=== PATIENT | male | born 1930 | race Hispanic/Latino ===

== ENCOUNTER 2018-09-26 13:14 | Inpatient (IN) | payer MEDICARE ==
--- NOTE | 2018-09-26 13:39 | Emergency Department Report ---
ED Altered Mental Status HPI - General Chief Complaint: Altered Mental Status Stated Complaint: AMS/FALL STANDING POSITION Time Seen by Provider: 09/26/18 13:14 Source: EMS Mode of arrival: Stretcher Limitations: Altered Mental Status - History of Present Illness Initial Comments: Condition is a 88-year-old male that presents with altered mental status. Patient was sent here by his shelter for evaluation. Patient found to be confused by the shelter staff and falling. Patient was brought in by EMS. Report received from EMS. Patient is a note 3 at this time, however the patient is confused on situation. Patient denies pain. Patient denies chest pain shortness of breath. Patient denies loss of consciousness. Patient denies hitting his head. Patient talking confused at times. Per EMS the patient fell to the floor but did not hit his head or lose consciousness. EMS also states patient has been hallucinating and confused. EMS states the patient had a near- syncope or syncopal episode The shelter documentation patient has a history of sepsis, encephalopathy, urinary tract infections, dementia, psychotic symptoms, depression, hypertension and difficulties in ambulating. Also per shelter documentation, patient was found to have confused talking and rambling with the staff of the shelter, patient was also agitated and fighting with the shelter staff. MD Complaint: altered mental status, confusion -: Sudden Severity: severe Consistency of Symptoms: waxing and waning Associated Symptoms: difficulty walking. denies: chest pain, cough, diaphoresis, fever/chills, headaches, loss of appetite, malaise, nausea/vomiting, rash, seizure, shortness of breath, syncope, weakness, foul smelling urine, diarrhea, incontinence - Related Data Allergies Allergy/AdvReac Type Severity Reaction Status Date / Time No Known Allergies Allergy Unverified 09/26/18 13:32 ED Review of Systems ROS: Stated complaint: AMS/FALL STANDING POSITION Other details as noted in HPI Constitutional: denies: chills, fever Eyes: denies: eye pain, eye discharge, vision change ENT: denies: ear pain, throat pain Respiratory: denies: cough, shortness of breath, wheezing Cardiovascular: denies: chest pain, palpitations Endocrine: no symptoms reported Gastrointestinal: denies: abdominal pain, nausea, diarrhea Genitourinary: denies: urgency, dysuria Musculoskeletal: denies: back pain, joint swelling, arthralgia Skin: denies: rash, lesions Neurological: denies: headache, weakness, paresthesias Psychiatric: denies: anxiety, depression Hematological/Lymphatic: denies: easy bleeding, easy bruising ED Past Medical Hx - Past Medical History Previous Medical History?: Yes Hx Hypertension: Yes Hx Psychiatric Treatment: Yes (dep. ) Hx Dementia: Yes - Surgical History Past Surgical History?: No - Family History Family history: no significant - Social History Smoking Status: Unknown if ever smoked Substance Use Type: None ED Physical Exam - General Limitations: Altered Mental Status General appearance: alert, in no apparent distress - Head Head exam: Present: atraumatic, normocephalic - Eye Eye exam: Present: normal appearance - ENT ENT exam: Present: mucous membranes moist - Neck Neck exam: Present: normal inspection - Respiratory Respiratory exam: Present: normal lung sounds bilaterally. Absent: respiratory distress - Cardiovascular Cardiovascular Exam: Present: regular rate, normal rhythm. Absent: systolic murmur, diastolic murmur, rubs, gallop - GI/Abdominal GI/Abdominal exam: Present: soft, normal bowel sounds - Rectal Rectal exam: Present: deferred - Extremities Exam Extremities exam: Present: normal inspection - Back Exam Back exam: Present: normal inspection - Neurological Exam Neurological exam: Present: alert, altered, oriented X3 - Psychiatric Psychiatric exam: Present: normal affect, normal mood - Expanded Psychiatric Exam Expanded Focused psych exam: Present: flight of ideas, loose associations - Skin Skin exam: Present: warm, dry, intact, normal color. Absent: rash - Assessment Assessment Interval: Baseline - Level of Consciousness 1a. Level of Consciousness: alert/keenly responsive - LOC Questions 1b. LOC Questions: answers both correctly - LOC Command 1c. LOC Commands: performs tasks correctly - Best Gaze 2. Best Gaze: normal - Visual 3. Visual: no visual loss - Facial Palsy 4. Facial Palsy: normal symmetrical movement - Motor Arm 5a. Motor Arm Left: no drift 5b. Motor Arm Right: no drift - Motor Leg 6a. Motor Leg Left: no drift 6b. Motor Leg Right: no drift - Limb Ataxia 7. Limb Ataxia: absent - Sensory 8. Sensory: normal - Best Language 9. Best Language: no aphasia - Dysarthria 10. Dysarthria: normal - Extinction and Inattention 11. Extinction/Inattention: no abnormality - Scoring Total Score: 0 Stroke Severity: No Stroke Symptoms ED Course Vital Signs 09/26/18 09/26/18 14:10 14:14 Temperature 98.2 F Pulse Rate 103 H Respiratory 18 118 H Rate Blood Pressure 156/75 [Left] O2 Sat by Pulse 100 100 Oximetry - Reevaluation(s) Reevaluation #1: Past costal results with patient. Patient agrees with plan of care and admis castro. Patient will be admitted to the hospitalist service. 09/26/18 15:48 - Consultations Consultation #1: 09/26/18 15:48 Hospitalist consulted for admission. Hospitalist to admit patient. Hospitalist to assume care patient. - Lab Data Result diagrams: 09/26/18 14:35 09/26/18 14:35 Lab Results 09/26/18 09/26/18 09/26/18 Range/Units 14:07 14:07 14:35 WBC (4.5-11.0) K/mm3 RBC (3.65-5.03) M/mm3 Hgb (11.8-15.2) gm/dl Hct (35.5-45.6) % MCV (84-94) fl MCH (28-32) pg MCHC (32-34) % RDW (13.2-15.2) % Plt Count (140-440) K/mm3 Lymph % (Auto) (13.4-35.0) % [place] % (Auto) (0.0-7.3) % Eos % (Auto) (0.0-4.3) % Baso % (Auto) (0.0-1.8) % Lymph # (1.2-5.4) K/mm3 [place] # (0.0-0.8) K/mm3 Eos # (0.0-0.4) K/mm3 Baso # (0.0-0.1) K/mm3 Seg Neutrophils % (40.0-70.0) % Seg Neutrophils # (1.8-7.7) K/mm3 Sodium (137-145) mmol/L Potassium (3.6-5.0) mmol/L Chloride (98-107) mmol/L Carbon Dioxide (22-30) mmol/L Anion Gap mmol/L BUN (9-20) mg/dL Creatinine (0.8-1.5) mg/dL Estimated GFR ml/min BUN/Creatinine Ratio % Glucose (75-100) mg/dL Lactic Acid 1.50 (0.7-2.0) mmol/L Calcium (8.4-10.2) mg/dL Total Bilirubin (0.1-1.2) mg/dL AST (5-40) units/L ALT (7-56) units/L Alkaline Phosphatase (35-129) units/L Total Creatine Kinase (55-170) units/L Troponin T (0.00-0.029) ng/mL Total Protein (6.3-8.2) g/dL Albumin (3.9-5) g/dL Albumin/Globulin Ratio % Urine Color Yellow (Yellow) Urine Turbidity Clear (Clear) Urine pH 6.0 (5.0-7.0) Ur Specific [place] 1.016 (1.003-1.030) Urine Protein <15 mg/dl (Negative) mg/dL Urine Glucose (UA) Neg (Negative) mg/dL Urine Ketones Tr (Negative) mg/dL Urine Blood Neg (Negative) Urine Nitrite Neg (Negative) Urine Bilirubin Neg (Negative) Urine Urobilinogen < 2.0 (<2.0) mg/dL Ur Leukocyte Esterase Neg (Negative) Urine WBC (Auto) 1.0 (0.0-6.0) /HPF Urine RBC (Auto) 2.0 (0.0-6.0) /HPF Urine Bacteria (Auto) 1+ (Negative) /HPF Urine Mucus Few /HPF Urine Opiates Screen Presumptive negative Urine Methadone Screen Presumptive negative Ur Barbiturates Screen Presumptive negative Ur Phencyclidine Scrn Presumptive negative Ur Amphetamines Screen Presumptive negative U Benzodiazepines Scrn Presumptive negative Urine Cocaine Screen Presumptive negative U Marijuana (THC) Screen Presumptive negative Drugs of Abuse Note Disclamer 09/26/18 09/26/18 Range/Units 14:35 14:35 WBC 6.4 (4.5-11.0) K/mm3 RBC 2.74 L (3.65-5.03) M/mm3 Hgb 9.2 L (11.8-15.2) gm/dl Hct 25.9 L (35.5-45.6) % MCV 94 (84-94) fl MCH 34 H (28-32) pg MCHC 36 H (32-34) % RDW 14.3 (13.2-15.2) % Plt Count 304 (140-440) K/mm3 Lymph % (Auto) 21.3 (13.4-35.0) % [place] % (Auto) 9.0 H (0.0-7.3) % Eos % (Auto) 2.6 (0.0-4.3) % Baso % (Auto) 0.8 (0.0-1.8) % Lymph # 1.4 (1.2-5.4) K/mm3 [place] # 0.6 (0.0-0.8) K/mm3 Eos # 0.2 (0.0-0.4) K/mm3 Baso # 0.1 (0.0-0.1) K/mm3 Seg Neutrophils % 66.3 (40.0-70.0) % Seg Neutrophils # 4.2 (1.8-7.7) K/mm3 Sodium 137 (137-145) mmol/L Potassium 3.9 (3.6-5.0) mmol/L Chloride 100.0 (98-107) mmol/L Carbon Dioxide 25 (22-30) mmol/L Anion Gap 16 mmol/L BUN 24 H (9-20) mg/dL Creatinine 1.0 (0.8-1.5) mg/dL Estimated GFR > 60 ml/min BUN/Creatinine Ratio 24 % Glucose 84 (75-100) mg/dL Lactic Acid (0.7-2.0) mmol/L Calcium 9.0 (8.4-10.2) mg/dL Total Bilirubin 0.20 (0.1-1.2) mg/dL AST 28 (5-40) units/L ALT 35 (7-56) units/L Alkaline Phosphatase 71 (35-129) units/L Total Creatine Kinase 72 (55-170) units/L Troponin T 0.082 H (0.00-0.029) ng/mL Total Protein 5.7 L (6.3-8.2) g/dL Albumin 3.3 L (3.9-5) g/dL Albumin/Globulin Ratio 1.4 % Urine Color (Yellow) Urine Turbidity (Clear) Urine pH (5.0-7.0) Ur Specific [place] (1.003-1.030) Urine Protein (Negative) mg/dL Urine Glucose (UA) (Negative) mg/dL Urine Ketones (Negative) mg/dL Urine Blood (Negative) Urine Nitrite (Negative) Urine Bilirubin (Negative) Urine Urobilinogen (<2.0) mg/dL Ur Leukocyte Esterase (Negative) Urine WBC (Auto) (0.0-6.0) /HPF Urine RBC (Auto) (0.0-6.0) /HPF Urine Bacteria (Auto) (Negative) /HPF Urine Mucus /HPF Urine Opiates Screen Urine Methadone Screen Ur Barbiturates Screen Ur Phencyclidine Scrn Ur Amphetamines Screen U Benzodiazepines Scrn Urine Cocaine Screen U Marijuana (THC) Screen Drugs of Abuse Note - EKG Data -: EKG Interpreted by Me EKG shows normal: sinus rhythm, axis, intervals, QRS complexes, ST-T waves Rate: normal - Radiology Data Radiology results: report reviewed No acute findings on CT scan. No acute findings on chest x-ray - Medical Decision Making Patient is an 88-year-old male that presents to the emergency room with complaints of confusion, hallucinations and fall and near syncope. Patient's labs unremarkable except for anemia, elevated troponin. Head CT negative for acute findings but has chronic findings. Patient's chest x-ray negative for acute findings. - Differential Diagnosis syncope. Hallucinations. Altered mental status. Critical Care Time: Yes Critical care attestation.: If time is entered above; I have spent that time in minutes in the direct care of this critically ill patient, excluding procedure time. Critical Care Time: 45 minutes ED Disposition Clinical Impression: Falls frequently, Elevated troponin, Confusion, Hallucination, Near syncope Altered mental state Qualifiers: Altered mental status type: unspecified Qualified Code(s): R41.82 - Altered mental status, unspecified Anemia Qualifiers: Anemia type: unspecified type Qualified Code(s): D64.9 - Anemia, unspecified Disposition: DC-09 OP ADMIT IP TO THIS HOSP Is pt being admited?: Yes Does the pt Need Aspirin: No Condition: Critical Instructions: Syncope (ED) Time of Disposition: 15:47
[2018-09-26 14:20] LABS: Bacteria,Urine 1+ /HPF (Negative); Bilirubin,Urine NEG (Negative); Blood,Urine NEG (Negative); Color,Urine Yellow (Yellow); Mucus,Urine FEW /HPF; Protein,Urine <15 mg/dL mg/dL (Negative); Urobilinogen,Urine < 2.0 mg/dL (<2.0)
[2018-09-26 14:28] LABS: Amphetamine Screen,Urine PRESUMPTIVE NEGATIVE; Benzodiazepines Screen,Urine PRESUMPTIVE NEGATIVE; Cannabinoid Screen,Urine PRESUMPTIVE NEGATIVE; Cocaine Screen,Urine PRESUMPTIVE NEGATIVE; Methadone Screen,Urine PRESUMPTIVE NEGATIVE; Opiate Screen,Urine PRESUMPTIVE NEGATIVE
--- NOTE | 2018-09-26 14:42 | XRay Report ---
AP CHEST: HISTORY: Altered mental status AP view of the chest demonstrates a normal mediastinal and cardiac contour with clear lungs and normal bony and soft tissue structures. IMPRESSION: No acute cardiopulmonary findings.
--- NOTE | 2018-09-26 14:47 | Cat Scan Report ---
CT HEAD WITHOUT CONTRAST: HISTORY: Altered mental status. TECHNIQUE: Sequential 2.5mm CT images. COMPARISON: none. FINDINGS: Cerebral Parenchyma: Mild diffuse cortical volume loss is evident. Mild nonspecific chronic white matter changes are also identified which appear appropriate for this persons age. Cerebellum: There are multiple subcentimeter chronic focal infarcts in the bilateral cerebellar hemispheres. Approximately 4 focal infarcts are identified in the right cerebellum and 2 focal infarcts in the left cerebellum. Brainstem: Within normal limits. Ventricles: Normal. Sella: Normal. Extra-axial spaces: Normal. Basal Cisterns: Normal. Intracranial Hemorrhage: None. Midline Shift: None. Calvarium: Normal. Sinuses: Normal. Mastoid Air Cells: Normal. Visualized Orbits: Normal. IMPRESSION: Age appropriate volume loss and chronic white matter changes. 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 No acute intracranial process is identified.
[2018-09-26 15:28] LABS: Basophils # (Auto) 0.1 K/mm3 (0.0-0.1); Basophils % (Auto) 0.8 % (0.0-1.8); Eosinophils # (Auto) 0.2 K/mm3 (0.0-0.4); Eosinophils % (Auto) 2.6 % (0.0-4.3); Hematocrit 25.9 % (35.5-45.6); Hemoglobin 9.2 gm/dl (11.8-15.2); Lymphocytes # (Auto) 1.4 K/mm3 (1.2-5.4); Lymphocytes % (Auto) 21.3 % (13.4-35.0); Mean Corpuscular HGB Conc 36 % (32-34); Mean Corpuscular Volume 94 fl (84-94); Monocytes # (Auto) 0.6 K/mm3 (0.0-0.8); Platelet Count 304 K/mm3 (140-440); Red Blood Count 2.74 M/mm3 (3.65-5.03); Red Cell Distribution Width 14.3 % (13.2-15.2)
[2018-09-26 15:42] LABS: Alanine Aminotransferase 35 units/L (7-56); Albumin 3.3 g/dL (3.9-5); BUN/Creatinine Ratio 24; Blood Urea Nitrogen 24 mg/dL (9-20); Hemolysis Index 8
[2018-09-26 16:09] LABS: Creatine Kinase MB 3.2 ng/mL (0.0-4.0)
[2018-09-26 16:10] LABS: Chol/HDL Ratio 4.22 %; HDL Cholesterol 35 mg/dL (40-59); LDL Cholesterol,Direct 107 mg/dL (50-130)
[2018-09-26] MEDS ORDERED: TYLENOL PO PRN (17:01)
[2018-09-26] MEDS ORDERED: SODIUM CHLORIDE FLUSH SYRINGE 10 ML IV PRN (17:01)
[2018-09-26] MEDS ORDERED: ZOFRAN IV PRN (17:01)
[2018-09-26] MEDS ORDERED: DILAUDID IV PRN (17:04)
[2018-09-26] MEDS ORDERED: PERCOCET 5/325 PO PRN (17:04)
[2018-09-26] MEDS ORDERED: HEPARIN 10,000 UNITS/10 ML IV ONE (17:11)
[2018-09-26] MEDS ORDERED: NON-FORMULARY (Amlodipine Besylate [Norvasc] 2.5 MG) PO SCH (17:15)
--- NOTE | 2018-09-26 17:24 | History and Physical Report ---
History of Present Illness Date of examination: 09/26/18 Date of admission: 09/26/2018 Chief complaint: Syncope and frequent falls History of present illness: 88-year-old male with history of hypertension and dementia with agitation and recent onset delusions sent from the patient's is a intermediate for apparent syncope and frequent falls. As per the son who is at bedside patient woke up at 3 AM and gives him some instructions. Patient was following a nurse who was giving medications this morning and apparently syncopized. No complaints of any chest pain. Patient was apparently very confused and delirious at that point. During my examination patient was clear and coherent alert and oriented 3. No fever or chills. No shortness of breath. Patient was admitted to [facility] for severe debility to improve his strength and for rehabilitation. Patient is a history of hypertension dementia and psychotic symptoms. Patient also has dementia with agitation Past Medical History Previous Medical History?: Yes Hx Hypertension: Yes Hx Psychiatric Treatment: Yes (dep. ) Hx Dementia: Yes Surgical History Past Surgical History?: No Family History Family history: no significant Social History Smoking Status: Unknown if ever smoked Substance Use Type: None Review of Systems ROS: Stated complaint: AMS/FALL STANDING POSITION Other details as noted in HPI Constitutional: denies: chills, fever Eyes: denies: eye pain, eye discharge, vision change ENT: denies: ear pain, throat pain Respiratory: denies: cough, shortness of breath, wheezing Cardiovascular: denies: chest pain, palpitations Endocrine: no symptoms reported Gastrointestinal: denies: abdominal pain, nausea, diarrhea Genitourinary: denies: urgency, dysuria Musculoskeletal: denies: back pain, joint swelling, arthralgia Skin: denies: rash, lesions Neurological: denies: headache, weakness, paresthesias Psychiatric: denies: anxiety, depression Hematological/Lymphatic: denies: easy bleeding, easy bruising Medications and Allergies Allergies Allergy/AdvReac Type Severity Reaction Status Date / Time No Known Allergies Allergy Unverified 09/26/18 13:32 Home Medications Medication Instructions Recorded Confirmed Last Taken Type Amlodipine Besylate [Norvasc] 2.5 mg PO DAILY 09/26/18 09/26/18 Unknown History Divalproex ER [DepaKOTE ER] 250 mg PO QHS 09/26/18 09/26/18 Unknown History Losartan [Cozaar] 25 mg PO QDAY 09/26/18 09/26/18 Unknown History Melatonin 3 mg PO QHS 09/26/18 09/26/18 Unknown History Mirtazapine [Remeron] 15 mg PO QHS 09/26/18 09/26/18 Unknown History Valsartan 40 mg PO QDAY 09/26/18 09/26/18 Unknown History cefUROXime [Ceftin] 250 mg PO Q12H 09/26/18 09/26/18 Unknown History risperiDONE [Risperdal] 0.5 mg PO QHS 09/26/18 09/26/18 Unknown History Active Meds: Active Medications Acetaminophen (Tylenol) 650 mg PO Q4H PRN PRN Reason: Pain MILD(1-3)/Fever >100.5/PAULINO Divalproex Sodium (Depakote Er) 250 mg PO QHS [facility] Enoxaparin Sodium (Lovenox) 30 mg SUB-Q QDAY [facility] Heparin Sodium (Porcine) (Heparin 10,000 Units/10 Ml) 4,700 unit 60 unit/kg (4700 unit) IV ONCE ONE Stop: 09/26/18 17:12 Hydromorphone HCl (Dilaudid) 0.5 mg IV Q3H PRN PRN Reason: Pain , Severe (7-10) Sodium Chloride (Nacl 0.9% 1000 Ml) 1,000 mls @ 75 mls/hr IV DIRECT JORDYN Stop: 09/27/18 11:00 Heparin Sodium/Sodium Chloride (Heparin/ 0.45% Nacl-25,000 Unit/500 Ml) 25,000 unit in 500 mls @ 23.678 mls/hr IV TITR JORDYN; Protocol Mirtazapine (Remeron) 15 mg PO QHS [facility] Miscellaneous Medication (Amlodipine Besylate [Norvasc]) 2.5 mg PO DAILY [facility] Miscellaneous Medication (Melatonin [Melatonin]) 3 mg PO QHS [facility] Miscellaneous Medication (Risperidone [Risperdal]) 0.5 mg PO QHS [facility] Ondansetron HCl (Zofran) 4 mg IV Q8H PRN PRN Reason: Nausea And Vomiting Oxycodone/Acetaminophen (Percocet 5/325) 1 tab PO Q6H PRN PRN Reason: Pain, Moderate (4-6) Sodium Chloride (Sodium Chloride Flush Syringe 10 Ml) 10 ml IV BID JORDYN Sodium Chloride (Sodium Chloride Flush Syringe 10 Ml) 10 ml IV PRN PRN PRN Reason: LINE FLUSH Valsartan (Diovan) 80 mg PO QDAY JORDYN Exam - Physical Exam Narrative exam: Elderly male lying in bed and answering questions appropriately - Constitutional Vitals: Temp Pulse Resp BP Pulse Ox 98.2 F 103 H 118 H 156/75 100 09/26/18 14:14 09/26/18 14:14 09/26/18 14:14 09/26/18 14:14 09/26/18 14:14 General appearance: Present: no acute distress, well-nourished - EENT Eyes: Present: PERRL ENT: hearing intact, clear oral mucosa - Neck Neck: Present: supple, normal ROM - Respiratory Respiratory effort: normal Respiratory: bilateral: CTA - Cardiovascular Heart rate: 100 Rhythm: regular Heart Sounds: Present: S1 & S2. Absent: rub, click - Extremities Extremities: no ischemia, pulses intact, pulses symmetrical, No edema Peripheral Pulses: within normal limits - Abdominal General gastrointestinal: Present: soft, non-tender, non-distended, normal bowel sounds Male genitourinary: Present: normal - Rectal Rectal Exam: deferred - Integumentary Integumentary: Present: clear, warm, dry - Musculoskeletal Musculoskeletal: gait normal, strength equal bilaterally - Psychiatric Psychiatric: appropriate mood/affect, intact judgment & insight - Neurologic Neurologic: CNII-XII intact, moves all extremities - Allied Health Allied health notes reviewed: nursing, case management Results - Labs CBC & Chem 7: 09/26/18 17:28 09/26/18 14:35 Labs: Laboratory Last Values WBC 6.4 K/mm3 (4.5-11.0) 09/26/18 14:35 RBC 2.74 M/mm3 (3.65-5.03) L 09/26/18 14:35 Hgb 9.2 gm/dl (11.8-15.2) L 09/26/18 14:35 Hct 25.9 % (35.5-45.6) L 09/26/18 14:35 MCV 94 fl (84-94) 09/26/18 14:35 MCH 34 pg (28-32) H 09/26/18 14:35 MCHC 36 % (32-34) H 09/26/18 14:35 RDW 14.3 % (13.2-15.2) 09/26/18 14:35 Plt Count 304 K/mm3 (140-440) 09/26/18 14:35 Lymph % (Auto) 21.3 % (13.4-35.0) 09/26/18 14:35 [place] % (Auto) 9.0 % (0.0-7.3) H 09/26/18 14:35 Eos % (Auto) 2.6 % (0.0-4.3) 09/26/18 14:35 Baso % (Auto) 0.8 % (0.0-1.8) 09/26/18 14:35 Lymph # 1.4 K/mm3 (1.2-5.4) 09/26/18 14:35 [place] # 0.6 K/mm3 (0.0-0.8) 09/26/18 14:35 Eos # 0.2 K/mm3 (0.0-0.4) 09/26/18 14:35 Baso # 0.1 K/mm3 (0.0-0.1) 09/26/18 14:35 Seg Neutrophils % 66.3 % (40.0-70.0) 09/26/18 14:35 Seg Neutrophils # 4.2 K/mm3 (1.8-7.7) 09/26/18 14:35 Sodium 137 mmol/L (137-145) 09/26/18 14:35 Potassium 3.9 mmol/L (3.6-5.0) 09/26/18 14:35 Chloride 100.0 mmol/L (98-107) 09/26/18 14:35 Carbon Dioxide 25 mmol/L (22-30) 09/26/18 14:35 Anion Gap 16 mmol/L 09/26/18 14:35 BUN 24 mg/dL (9-20) H 09/26/18 14:35 Creatinine 1.0 mg/dL (0.8-1.5) 09/26/18 14:35 Estimated GFR > 60 ml/min 09/26/18 14:35 BUN/Creatinine Ratio 24 % 09/26/18 14:35 Glucose 84 mg/dL (75-100) 09/26/18 14:35 Lactic Acid 1.50 mmol/L (0.7-2.0) 09/26/18 14:35 Calcium 9.0 mg/dL (8.4-10.2) 09/26/18 14:35 Total Bilirubin 0.20 mg/dL (0.1-1.2) 09/26/18 14:35 AST 28 units/L (5-40) 09/26/18 14:35 ALT 35 units/L (7-56) 09/26/18 14:35 Alkaline Phosphatase 71 units/L (35-129) 09/26/18 14:35 Total Creatine Kinase 70 units/L (55-170) 09/26/18 14:35 CK-MB (CK-2) 3.2 ng/mL (0.0-4.0) 09/26/18 14:35 CK-MB (CK-2) Rel Index 4.5 (0-4) H 09/26/18 14:35 Troponin T 0.082 ng/mL (0.00-0.029) H 09/26/18 14:35 Total Protein 5.7 g/dL (6.3-8.2) L 09/26/18 14:35 Albumin 3.3 g/dL (3.9-5) L 09/26/18 14:35 Albumin/Globulin Ratio 1.4 % 09/26/18 14:35 Triglycerides 112 mg/dL (2-149) 09/26/18 14:35 Cholesterol 148 mg/dL (50-199) 09/26/18 14:35 LDL Cholesterol Direct 107 mg/dL (50-130) 09/26/18 14:35 HDL Cholesterol 35 mg/dL (40-59) L 09/26/18 14:35 Cholesterol/HDL Ratio 4.22 % 09/26/18 14:35 Urine Color Yellow (Yellow) 09/26/18 14:07 Urine Turbidity Clear (Clear) 09/26/18 14:07 Urine pH 6.0 (5.0-7.0) 09/26/18 14:07 Ur Specific [place] 1.016 (1.003-1.030) 09/26/18 14:07 Urine Protein <15 mg/dl mg/dL (Negative) 09/26/18 14:07 Urine Glucose (UA) Neg mg/dL (Negative) 09/26/18 14:07 Urine Ketones Tr mg/dL (Negative) 09/26/18 14:07 Urine Blood Neg (Negative) 09/26/18 14:07 Urine Nitrite Neg (Negative) 09/26/18 14:07 Urine Bilirubin Neg (Negative) 09/26/18 14:07 Urine Urobilinogen < 2.0 mg/dL (<2.0) 09/26/18 14:07 Ur Leukocyte Esterase Neg (Negative) 09/26/18 14:07 Urine WBC (Auto) 1.0 /HPF (0.0-6.0) 09/26/18 14:07 Urine RBC (Auto) 2.0 /HPF (0.0-6.0) 09/26/18 14:07 Urine Bacteria (Auto) 1+ /HPF (Negative) 09/26/18 14:07 Urine Mucus Few /HPF 09/26/18 14:07 Salicylates < 0.3 mg/dL (2.8-20.0) L 09/26/18 14:35 Urine Opiates Screen Presumptive negative 09/26/18 14:07 Urine Methadone Screen Presumptive negative 09/26/18 14:07 Acetaminophen < 5.0 ug/mL (10.0-30.0) L 09/26/18 14:35 Ur Barbiturates Screen Presumptive negative 09/26/18 14:07 Ur Phencyclidine Scrn Presumptive negative 09/26/18 14:07 Ur Amphetamines Screen Presumptive negative 09/26/18 14:07 U Benzodiazepines Scrn Presumptive negative 09/26/18 14:07 Urine Cocaine Screen Presumptive negative 09/26/18 14:07 U Marijuana (THC) Screen Presumptive negative 09/26/18 14:07 Drugs of Abuse Note Disclamer 09/26/18 14:07 - Imaging and Cardiology EKG: report reviewed Imaging and Cardiology: Chest x-ray No acute findings CT head Age appropriate volume loss and chronic white matter changes. 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 No acute intracranial processes identified Assessment and Plan Advance Directives: Yes (Full code) VTE prophylaxis?: Chemical Plan of care discussed with patient/family: Yes - Patient Problems (1) Non-STEMI (non-ST elevated myocardial infarction) Current Visit: Yes Status: Acute Plan to address problem: Troponin elevated CK-MB slightly elevated\ No chest pain We will treat as non-STEMI Cardiology consultation requested Addendum: Patient's son and son-in-law requested to have a discussion with me. Son-in-law is a physician promotional advertising assistant Son-in-law does not want Lexiscan and heparin drip which were discontinued They mainly want the patient to be admitted to the [facility] psych unit. I could not medically clear to geropsychiatric unit in the emergency room because of elevated troponin and CK-MB. They feel that the patient needs psychiatric treatment than medical treatment with which I agree partially. Son agreed for echocardiogram Cardiology consult was requested for their opinion (2) Syncope Current Visit: Yes Status: Chronic Qualifiers: Encounter type: initial encounter Plan to address problem: Syncope workup Patient to get Lexiscan echocardiogram and carotid duplex scan As per son there was no syncope and they do not want Lexiscan which was discontinued (3) Elevated troponin Current Visit: Yes Status: Acute Plan to address problem: As mentioned in non-STEMI workup (4) Hypertension Current Visit: Yes Status: Chronic Qualifiers: Hypertension type: essential hypertension Qualified Code(s): I10 - Essential (primary) hypertension Plan to address problem: Continue valsartan and amlodipine (5) Dementia Current Visit: Yes Status: Chronic Qualifiers: Dementia type: vascular dementia Dementia behavioral disturbance: with behavioral disturbance Qualified Code(s): F01.51 - Vascular dementia with behavioral disturbance Plan to address problem: Patient also has agitation and delusions Patient on Depakote for behavior disturbances and also Risperdal . Patient needs mental health consultation Patient also needs [facility] psych admission once the patient is stable and being discharged (6) Falls frequently Current Visit: Yes Status: Acute Plan to address problem: Physical therapy initiated (7) Anemia Current Visit: Yes Status: Chronic Qualifiers: Anemia type: unspecified type Qualified Code(s): D64.9 - Anemia, unspecified Plan to address problem: Anemia workup ordered (8) DVT prophylaxis Current Visit: Yes Status: Acute Plan to address problem: On Lovenox and GI prophylaxis
[2018-09-26] MEDS ORDERED: NACL 0.9% 1000 ML 1,000 ML IV SCH (18:00)
[2018-09-26] MEDS ORDERED: HEPARIN/ 0.45% NACL-25,000 UNIT/500 ML 25,000 UNIT/500 ML BAG IV SCH (18:00)
[2018-09-26 18:03] LABS: Hematocrit 26.9 % (35.5-45.6); Hemoglobin 9.4 gm/dl (11.8-15.2)
[2018-09-26] MEDS: NORVASC PO SCH (18:12)
[2018-09-26 18:14] LABS: INR 0.99 (0.87-1.13)
[2018-09-26 18:15] LABS: Partial Thromboplastin Time 29.5 Sec. (24.2-36.6)
[2018-09-26] MEDS: DIOVAN PO SCH (18:19)
[2018-09-26] MEDS ORDERED: LOVENOX SUB-Q SCH (20:00)
[2018-09-26] MEDS ORDERED: MELATONIN 3 MG PO SCH (22:00)
[2018-09-26] MEDS ORDERED: NON-FORMULARY (Risperidone [Risperdal] 0.5 MG) PO SCH (22:00)
[2018-09-26] MEDS: SODIUM CHLORIDE FLUSH SYRINGE 10 ML IV SCH (22:42)
[2018-09-26] MEDS: LOVENOX SUB-Q SCH (22:42)
[2018-09-26] MEDS: RisperDAL PO SCH (22:42)
[2018-09-26] MEDS: REMERON PO SCH (22:42)
[2018-09-27 07:23] LABS: Alanine Aminotransferase 30 units/L (7-56); Albumin 3.2 g/dL (3.9-5); BUN/Creatinine Ratio 20; Blood Urea Nitrogen 20 mg/dL (9-20); Calcium 8.8 mg/dL (8.4-10.2); Hemolysis Index 5
--- NOTE | 2018-09-27 08:38 | Consultation ---
History of Present Illness - Reason for Consult Consult date: 09/27/18 dementia with agitation and delusions Requesting physician: SUZY BLANCO - History of Present Illness The patient is an 88yo retired male with history of Dementia, CKD, HTN, HLD, Hyponatremia, Anxiety and Insomnia. He was transfer from [facility] facility to the [facility] with c/o being confused and agitated; he was reportedly entering other patients' rooms, disruptive and difficult to redirect. Psychiatry consult requested for management of dementia with agitation and delusions. Patient seen this morning. Son-in-law is at bedside. Patient is alert and fully oriented this morning. He is calm and pleasant but endorses being confused. He also endorses auditory hallucinations and paranoia. He reports being told that he has memory problems by his doctor. He completely denies SI/HI. His Son-in-law reports that patient has mild memory difficulties at baseline but he is able to function independently. He lives alone, able to drive and do grocery shopping. Since last June, his memory progressively declined to where he is very confused, disorganized and delusional. He has difficulty sleeping at night. No suicidal or homicidal statements or gestures. Per son-in-law, patient was admitted at [facility] one week ago and was started on antibiotics for UTI -last dose was yesterday. He was transferred to the [facility] facility from where he was transferred here yesterday due to his aggressive behaviors. Past History Past Medical History: GERD, hypertension, other (CKD, UTI) Social history: , Lives alone Family history: no significant family history Medications and Allergies Allergies Allergy/AdvReac Type Severity Reaction Status Date / Time No Known Allergies Allergy Unverified 09/26/18 13:32 Home Medications Medication Instructions Recorded Confirmed Last Taken Type Amlodipine Besylate [Norvasc] 2.5 mg PO DAILY 09/26/18 09/26/18 Unknown History Divalproex ER [DepaKOTE ER] 250 mg PO QHS 09/26/18 09/26/18 Unknown History Losartan [Cozaar] 25 mg PO QDAY 09/26/18 09/26/18 Unknown History Melatonin 3 mg PO QHS 09/26/18 09/26/18 Unknown History Mirtazapine [Remeron] 15 mg PO QHS 09/26/18 09/26/18 Unknown History Valsartan 40 mg PO QDAY 09/26/18 09/26/18 Unknown History cefUROXime [Ceftin] 250 mg PO Q12H 09/26/18 09/26/18 Unknown History risperiDONE [Risperdal] 0.5 mg PO QHS 09/26/18 09/26/18 Unknown History Active Meds: Active Medications Acetaminophen (Tylenol) 650 mg PO Q4H PRN PRN Reason: Pain MILD(1-3)/Fever >100.5/PAULINO Amlodipine Besylate (Norvasc) 2.5 mg PO QDAY [facility] Last Admin: 09/26/18 18:12 Dose: 2.5 mg Documented by: Divalproex Sodium (Depakote Er) 250 mg PO QHS [facility] Last Admin: 09/26/18 22:41 Dose: 250 mg Documented by: Enoxaparin Sodium (Lovenox) 80 mg SUB-Q Q12HR [facility] Last Admin: 09/26/18 22:42 Dose: 80 mg Documented by: Hydromorphone HCl (Dilaudid) 0.5 mg IV Q3H PRN PRN Reason: Pain , Severe (7-10) Sodium Chloride (Nacl 0.9% 1000 Ml) 1,000 mls @ 75 mls/hr IV DIRECT [facility] Stop: 09/27/18 11:00 Mirtazapine (Remeron) 15 mg PO QHS [facility] Last Admin: 09/26/18 22:42 Dose: 15 mg Documented by: Miscellaneous Medication (Melatonin [Melatonin]) 3 mg PO QHS [facility] Ondansetron HCl (Zofran) 4 mg IV Q8H PRN PRN Reason: Nausea And Vomiting Oxycodone/Acetaminophen (Percocet 5/325) 1 tab PO Q6H PRN PRN Reason: Pain, Moderate (4-6) Risperidone (Risperdal) 0.5 mg PO QHS [facility] Last Admin: 09/26/18 22:42 Dose: 0.5 mg Documented by: Sodium Chloride (Sodium Chloride Flush Syringe 10 Ml) 10 ml IV BID [facility] Last Admin: 09/26/18 22:42 Dose: 10 ml Documented by: Sodium Chloride (Sodium Chloride Flush Syringe 10 Ml) 10 ml IV PRN PRN PRN Reason: LINE FLUSH Valsartan (Diovan) 80 mg PO QDAY [facility] Last Admin: 09/26/18 18:19 Dose: 80 mg Documented by: Review of Systems All systems: negative Constitutional: fatigue Psychiatric: memory loss, insomnia, hallucinations, paranoia Exam - Constitutional Vitals: Temp Pulse Resp BP Pulse Ox 98.3 F 102 H 18 187/89 96 09/27/18 00:36 09/27/18 06:06 09/27/18 00:36 09/27/18 00:36 09/27/18 00:36 General appearance: Present: no acute distress - Respiratory Respiratory effort: normal - Extremities Extremities: no ischemia, No edema - Integumentary Integumentary: Present: clear, warm, dry Results - Labs CBC & Chem 7: 09/26/18 17:28 09/27/18 04:22 Labs: Abnormal lab results 09/26/18 09/26/18 09/26/18 Range/Units 14:35 14:35 14:35 RBC 2.74 L (3.65-5.03) M/mm3 Hgb 9.2 L (11.8-15.2) gm/dl Hct 25.9 L (35.5-45.6) % MCH 34 H (28-32) pg MCHC 36 H (32-34) % [place] % (Auto) 9.0 H (0.0-7.3) % BUN 24 H (9-20) mg/dL CK-MB (CK-2) Rel Index (0-4) Troponin T 0.082 H (0.00-0.029) ng/mL Total Protein 5.7 L (6.3-8.2) g/dL Albumin 3.3 L (3.9-5) g/dL HDL Cholesterol 35 L (40-59) mg/dL Salicylates < 0.3 L (2.8-20.0) mg/dL Acetaminophen (10.0-30.0) ug/mL 09/26/18 09/26/18 09/26/18 Range/Units 14:35 14:35 17:28 RBC (3.65-5.03) M/mm3 Hgb (11.8-15.2) gm/dl Hct (35.5-45.6) % MCH (28-32) pg MCHC (32-34) % [place] % (Auto) (0.0-7.3) % BUN (9-20) mg/dL CK-MB (CK-2) Rel Index 4.5 H (0-4) Troponin T 0.097 H (0.00-0.029) ng/mL Total Protein (6.3-8.2) g/dL Albumin (3.9-5) g/dL HDL Cholesterol (40-59) mg/dL Salicylates (2.8-20.0) mg/dL Acetaminophen < 5.0 L (10.0-30.0) ug/mL 09/26/18 09/26/18 09/27/18 Range/Units 17:28 23:22 04:22 RBC (3.65-5.03) M/mm3 Hgb 9.4 L (11.8-15.2) gm/dl Hct 26.9 L (35.5-45.6) % MCH (28-32) pg MCHC (32-34) % [place] % (Auto) (0.0-7.3) % BUN (9-20) mg/dL CK-MB (CK-2) Rel Index (0-4) Troponin T 0.098 H (0.00-0.029) ng/mL Total Protein 5.4 L (6.3-8.2) g/dL Albumin 3.2 L (3.9-5) g/dL HDL Cholesterol (40-59) mg/dL Salicylates (2.8-20.0) mg/dL Acetaminophen (10.0-30.0) ug/mL 09/27/18 Range/Units 04:22 RBC (3.65-5.03) M/mm3 Hgb (11.8-15.2) gm/dl Hct (35.5-45.6) % MCH (28-32) pg MCHC (32-34) % [place] % (Auto) (0.0-7.3) % BUN (9-20) mg/dL CK-MB (CK-2) Rel Index (0-4) Troponin T 0.090 H (0.00-0.029) ng/mL Total Protein (6.3-8.2) g/dL Albumin (3.9-5) g/dL HDL Cholesterol (40-59) mg/dL Salicylates (2.8-20.0) mg/dL Acetaminophen (10.0-30.0) ug/mL Assessment and Plan Major Neurocognitive Disorder with Behavioral Problems Acute Delirium due to multiple etiologies (dementia, UTI, electrolyte disturbance RECOMMENDATIONS: MEDICATIONS: Will increase Risperdal to 0.5mg bid for delirium Increase Melatonin to 6mg qhs to regulate sleep/wake cycle Continue Depakote at current dose Risks, benefits and alternatives of medications discussed with the patient, questions answered and consent obtained from patient. PSYCHOTHERAPY: Supportive psychotherapy provided SUBSTANCE ABUSE: N/A MEDICAL: Per primary team. Consider repeating UA DELIRIUM PRECAUTIONS: Please re-orient patient frequently, keep lights on during the day, and minimize benzodiazepines and opiates as these medications could worsen patient's confusion. ROPING TENDER: Defer to primary team DISPOSITION: Acute inpatient psychiatric hospitalization is indicated. Transfer when medically stable LEGAL STATUS: Voluntary FOLLOW-UP: Will continue to follow I have reviewed this treatment plan, including potential risks and benefits of medications, with the patient and/or family members and relevant hospital prov iders. Please contact with any questions and/or concerns. - Patient Problems (1) Altered mental state Current Visit: Yes Status: Acute Qualifiers: Altered mental status type: unspecified Qualified Code(s): R41.82 - Altered mental status, unspecified (2) Confusion Current Visit: Yes Status: Acute (3) Falls frequently Current Visit: Yes Status: Acute (4) Near syncope Current Visit: Yes Status: Acute (5) Dementia Current Visit: Yes Status: Chronic Qualifiers: Dementia type: vascular dementia Dementia behavioral disturbance: with behavioral disturbance Qualified Code(s): F01.51 - Vascular dementia with behavioral disturbance (6) Hypertension Current Visit: Yes Status: Chronic Qualifiers: Hypertension type: essential hypertension Qualified Code(s): I10 - Essential (primary) hypertension
[2018-09-27] MEDS ORDERED: LOVENOX SUB-Q SCH ×2 (10:00)
[2018-09-27] MEDS: DIOVAN PO SCH (11:05)
[2018-09-27] MEDS: NORVASC PO SCH (11:06)
[2018-09-27] MEDS: LOVENOX SUB-Q SCH ×2 (11:07→22:20)
[2018-09-27] MEDS: SODIUM CHLORIDE FLUSH SYRINGE 10 ML IV SCH ×2 (11:07→22:20)
--- NOTE | 2018-09-27 11:42 | Consultation ---
History of Present Illness Consult date: 09/27/18 Consult reason: elevated troponin History of present illness: Patient is an 88 year old male with a history of Dementia who was brought in with altered mental status and awaits inpatient psychiatric hospitalization. A cardiac consultation was requested for mild elevation of troponin. Patient denies chest pain shortness of breath. Head CT scan reports no acute intracranial process. 12 lead ECG is benign, a normal sinus rhythm. His latest echocardiogram, done 08/2018, reports a normal left ventricular systolic function, ejection fraction 50-55%. Past History Social history: , Lives alone Family history: no significant family history Medications and Allergies Allergies Allergy/AdvReac Type Severity Reaction Status Date / Time No Known Allergies Allergy Unverified 09/26/18 13:32 Home Medications Medication Instructions Recorded Confirmed Last Taken Type Amlodipine Besylate [Norvasc] 2.5 mg PO DAILY 09/26/18 09/26/18 Unknown History Divalproex ER [DepaKOTE ER] 250 mg PO QHS 09/26/18 09/26/18 Unknown History Losartan [Cozaar] 25 mg PO QDAY 09/26/18 09/26/18 Unknown History Melatonin 3 mg PO QHS 09/26/18 09/26/18 Unknown History Mirtazapine [Remeron] 15 mg PO QHS 09/26/18 09/26/18 Unknown History Valsartan 40 mg PO QDAY 09/26/18 09/26/18 Unknown History cefUROXime [Ceftin] 250 mg PO Q12H 09/26/18 09/26/18 Unknown History risperiDONE [Risperdal] 0.5 mg PO QHS 09/26/18 09/26/18 Unknown History Active Meds: Active Medications Acetaminophen (Tylenol) 650 mg PO Q4H PRN PRN Reason: Pain MILD(1-3)/Fever >100.5/PAULINO Amlodipine Besylate (Norvasc) 2.5 mg PO QDAY [facility] Last Admin: 09/27/18 11:06 Dose: 2.5 mg Documented by: Divalproex Sodium (Depakote Er) 250 mg PO QHS [facility] Last Admin: 09/26/18 22:41 Dose: 250 mg Documented by: Enoxaparin Sodium (Lovenox) 80 mg SUB-Q Q12HR [facility] Last Admin: 09/27/18 11:07 Dose: 80 mg Documented by: Hydromorphone HCl (Dilaudid) 0.5 mg IV Q3H PRN PRN Reason: Pain , Severe (7-10) Mirtazapine (Remeron) 15 mg PO QHS [facility] Last Admin: 09/26/18 22:42 Dose: 15 mg Documented by: Miscellaneous Medication (Melatonin [Melatonin]) 3 mg PO QHS [facility] Ondansetron HCl (Zofran) 4 mg IV Q8H PRN PRN Reason: Nausea And Vomiting Oxycodone/Acetaminophen (Percocet 5/325) 1 tab PO Q6H PRN PRN Reason: Pain, Moderate (4-6) Risperidone (Risperdal) 0.5 mg PO QHS [facility] Last Admin: 09/26/18 22:42 Dose: 0.5 mg Documented by: Sodium Chloride (Sodium Chloride Flush Syringe 10 Ml) 10 ml IV BID [facility] Last Admin: 09/27/18 11:07 Dose: 10 ml Documented by: Sodium Chloride (Sodium Chloride Flush Syringe 10 Ml) 10 ml IV PRN PRN PRN Reason: LINE FLUSH Valsartan (Diovan) 80 mg PO QDAY [facility] Last Admin: 09/27/18 11:05 Dose: 80 mg Documented by: Physical Examination Vital Signs Resp Pulse Ox 18 100 09/26/18 14:10 09/26/18 14:10 General appearance: no acute distress HEENT: Positive: PERRL Neck: Positive: trachea midline Cardiac: Positive: Reg Rate and Rhythm Lungs: Positive: Decreased Breath Sounds Neuro: Positive: Weakness Results 09/26/18 17:28 09/27/18 04:22 Cardiac Enzymes 09/26/18 09/26/18 09/27/18 Range/Units 14:35 14:35 04:22 AST 28 22 (5-40) units/L CK-MB (CK-2) 3.2 (0.0-4.0) ng/mL Coagulation 09/26/18 Range/Units 17:28 PT 13.7 (12.2-14.9) Sec. INR 0.99 (0.87-1.13) APTT 29.5 (24.2-36.6) Sec. Lipids 09/26/18 Range/Units 14:35 Triglycerides 112 (2-149) mg/dL Cholesterol 148 (50-199) mg/dL HDL Cholesterol 35 L (40-59) mg/dL Cholesterol/HDL Ratio 4.22 % CBC 09/26/18 09/26/18 Range/Units 14:35 17:28 WBC 6.4 (4.5-11.0) K/mm3 RBC 2.74 L (3.65-5.03) M/mm3 Hgb 9.2 L 9.4 L (11.8-15.2) gm/dl Hct 25.9 L 26.9 L (35.5-45.6) % Plt Count 304 310 (140-440) K/mm3 Lymph # 1.4 (1.2-5.4) K/mm3 [place] # 0.6 (0.0-0.8) K/mm3 Eos # 0.2 (0.0-0.4) K/mm3 Baso # 0.1 (0.0-0.1) K/mm3 Comprehensive Metabolic Panel 09/26/18 09/27/18 Range/Units 14:35 04:22 Sodium 137 140 (137-145) mmol/L Potassium 3.9 4.5 (3.6-5.0) mmol/L Chloride 100.0 105.7 (98-107) mmol/L Carbon Dioxide 25 24 (22-30) mmol/L BUN 24 H 20 (9-20) mg/dL Creatinine 1.0 1.0 (0.8-1.5) mg/dL Glucose 84 83 (75-100) mg/dL Calcium 9.0 8.8 (8.4-10.2) mg/dL AST 28 22 (5-40) units/L ALT 35 30 (7-56) units/L Alkaline Phosphatase 71 63 (35-129) units/L Total Protein 5.7 L 5.4 L (6.3-8.2) g/dL Albumin 3.3 L 3.2 L (3.9-5) g/dL Assessment and Plan Altered mental status Dementia Anemia Hypertension Mild elevated troponin, nonspecific pt denies chest pain ECG is benign Normal LVEF by echocardiogram 08/2018. Conservative cardiac management.
--- NOTE | 2018-09-27 12:08 | Discharge Summary ---
Providers - Providers Date of Admission: 09/26/18 17:01 Attending physician: JASMEET HUERTA MD 09/26/18 17:08 Consult to Physician [CONS] Routine Comment: LAUREEN AWARE OF CONSULTS AT 1100 Consulting Provider: THEODORE SARAH Physician Instructions: Reason For Exam: elevated troponin 09/26/18 17:09 Consult to Mental Health [CONS] Routine Reason For Exam: delusions Place consult to:: yes Notified:: CED Phone number called:: [phone] Was contact made?: Yes If yes, spoke with:: NATALEE Time called:: 08:00 09/26/18 18:18 Consult to Case Management [CONS] Routine Services Needed at Discharge: Physical Therapy Notified:: ed case manager Additional Physician Instructions: Hanny psych placement 09/26/18 18:36 Consult to Physician [CONS] Routine Comment: ALREADY SEEN BY PSYCH PER NURSE Consulting Provider: SHAHEEN GARCES Physician Instructions: Reason For Exam: dementia with agitation and delusions Physical Therapy Evaluation and Treat [CONS] Routine Comment: Reason For Exam: debility Primary care physician: MERY GARCIA Hospitalization Condition: Stable Disposition: [id number] PSY HOSP/PSY UNIT Time spent for discharge: 32 minutes - Discharge Diagnoses (1) Altered mental state Status: Acute Qualifiers: Altered mental status type: unspecified Qualified Code(s): R41.82 - Altered mental status, unspecified (2) Confusion Status: Acute (3) Elevated troponin Status: Acute (4) Falls frequently Status: Acute (5) Hallucination Status: Acute (6) Near syncope Status: Acute Core Measure Documentation - Palliative Care Palliative Care/ Comfort Measures: Not Applicable - Core Measures Any of the following diagnoses?: none Exam - Constitutional Vitals: Temp Pulse Resp BP Pulse Ox 98.3 F 99 H 18 187/89 96 09/27/18 00:36 09/27/18 07:29 09/27/18 00:36 09/27/18 00:36 09/27/18 00:36 Plan Activity: advance as tolerated Weight Bearing Status: Full Weight Bearing Special Instructions: physical therapy, occupational therapy
--- NOTE | 2018-09-27 21:59 | Vascular Lab Report ---
PROCEDURE: VL CAROTID DUPLEX BILAT TECHNIQUE: Duplex Doppler ultrasound of the common, internal and external carotid arteries and the v ertebral arteries was performed bilaterally. Cherry scale imaging, velocity spectral waveform analysis, and color flow Doppler were employed. HISTORY: syncope COMPARISONS: None . Note: Measurement of carotid stenosis is based on flow velocity values that correlate with the [place] Symptomatic Carotid Endarterectomy Trial (NASCET) based stenosis criteria using the internal carotid artery diameter as the denominator for stenosis calculation. FINDINGS: RIGHT carotid artery: Velocities: ICA PSV: 133 cm/sec ICA End diastolic: 25 cm/sec CCA PSV: 124 cm/sec IC/CC ratio: 1. 1 Plaque: Mild heterogeneous plaque. RIGHT vertebral artery: Antegrade systolic and diastolic flow LEFT carotid artery: Velocities: ICA PSV: 117 cm/sec ICA End diastolic: 26 cm/sec CCA PSV: 123 cm/sec IC/CC ratio: 0. 95 Plaque: Mild heterogeneous plaque. LEFT vertebral artery: Antegrade systolic and diastolic flow IMPRESSION: 1. 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 LEFT carotid: No hemodynamically significant (less than 50 percent) internal carotid artery sten osis. 3. Vertebral arteries: Bilaterally antegrade. This document is electronically signed by Shade Menon MD., September 27 2018 09:57:15 PM ET
[2018-09-27] MEDS: RisperDAL PO SCH (22:19)
[2018-09-27] MEDS: REMERON PO SCH (22:20)
[2018-09-28] MEDS: NORVASC PO SCH (09:38)
[2018-09-28] MEDS: DIOVAN PO SCH (09:38)
[2018-09-28] MEDS: LOVENOX SUB-Q SCH ×2 (09:38→21:56)
--- NOTE | 2018-09-28 11:50 | Progress Note ---
Assessment and Plan - Patient Problems (1) Altered mental state Current Visit: Yes Status: Acute Qualifiers: Altered mental status type: unspecified Qualified Code(s): R41.82 - Altered mental status, unspecified Plan to address problem: Patient was alert and oriented Cooperative during examination (2) Confusion Current Visit: Yes Status: Acute Plan to address problem: Resolved (3) Elevated troponin Current Visit: Yes Status: Acute Plan to address problem: Patient didn't have any chest pain, echo was normal and cardiology cleared for discharge (4) Falls frequently Current Visit: Yes Status: Acute Plan to address problem: The PT OT evaluation (5) Hallucination Current Visit: Yes Status: Acute (6) Near syncope Current Visit: Yes Status: Acute (7) Psychosis Current Visit: Yes Status: Acute Plan to address problem: Patient was initially presented to the ED for clearance to admit [facility]. Yesterday workup was done and cleared to admit to [facility] and patient was sent to the 5th floor and send back to the 4th floor. Which delayed the patient care, we have to re consult psych and will be seen by psych tomorrow. History Interval history: Patient was seen and evaluated, he was calm and cooprative Hospitalist Physical - Physical exam Narrative exam: Not in cardiopulmonary distress. The patient appeared well nourished and normally developed. Vital signs as documented. Head exam is unremarkable. No scleral icterus . Neck is without jugular venous distension, thyromegaly, or carotid bruits. Lungs are clear to auscultation. Cardiac exam reveals regular rate and Rhythm. First and second heart sounds normal. No murmurs, rubs or gallops. Abdominal exam reveals normal bowel sounds, no masses, no organomegaly and no aortic enlargement. Extremities are nonedematous and both femoral and pedal pulses are normal. PROFESSIONAL NURSING TUTOR: Alert and oriented 3. No focal weakness. - Constitutional Vitals: Temp Pulse Resp BP Pulse Ox 98.1 F 93 H 20 138/72 98 09/28/18 09:29 09/28/18 09:29 09/28/18 09:29 09/28/18 09:29 09/28/18 09:29 General appearance: Present: no acute distress Results - Labs CBC & Chem 7: 09/28/18 04:51 09/27/18 04:22 Labs: Laboratory Last Values WBC 6.4 K/mm3 (4.5-11.0) 09/26/18 14:35 RBC 2.74 M/mm3 (3.65-5.03) L 09/26/18 14:35 Hgb 9.4 gm/dl (11.8-15.2) L 09/26/18 17:28 Hct 26.9 % (35.5-45.6) L 09/26/18 17:28 MCV 94 fl (84-94) 09/26/18 14:35 MCH 34 pg (28-32) H 09/26/18 14:35 MCHC 36 % (32-34) H 09/26/18 14:35 RDW 14.3 % (13.2-15.2) 09/26/18 14:35 Plt Count 318 K/mm3 (140-440) 09/28/18 04:51 Lymph % (Auto) 21.3 % (13.4-35.0) 09/26/18 14:35 [place] % (Auto) 9.0 % (0.0-7.3) H 09/26/18 14:35 Eos % (Auto) 2.6 % (0.0-4.3) 09/26/18 14:35 Baso % (Auto) 0.8 % (0.0-1.8) 09/26/18 14:35 Lymph # 1.4 K/mm3 (1.2-5.4) 09/26/18 14:35 [place] # 0.6 K/mm3 (0.0-0.8) 09/26/18 14:35 Eos # 0.2 K/mm3 (0.0-0.4) 09/26/18 14:35 Baso # 0.1 K/mm3 (0.0-0.1) 09/26/18 14:35 Seg Neutrophils % 66.3 % (40.0-70.0) 09/26/18 14:35 Seg Neutrophils # 4.2 K/mm3 (1.8-7.7) 09/26/18 14:35 PT 13.7 Sec. (12.2-14.9) 09/26/18 17:28 INR 0.99 (0.87-1.13) 09/26/18 17:28 APTT 29.5 Sec. (24.2-36.6) 09/26/18 17:28 Sodium 140 mmol/L (137-145) 09/27/18 04:22 Potassium 4.5 mmol/L (3.6-5.0) 09/27/18 04:22 Chloride 105.7 mmol/L (98-107) 09/27/18 04:22 Carbon Dioxide 24 mmol/L (22-30) 09/27/18 04:22 Anion Gap 15 mmol/L 09/27/18 04:22 BUN 20 mg/dL (9-20) 09/27/18 04:22 Creatinine 1.0 mg/dL (0.8-1.5) 09/27/18 04:22 Estimated GFR > 60 ml/min 09/27/18 04:22 BUN/Creatinine Ratio 20 % 09/27/18 04:22 Glucose 83 mg/dL (75-100) 09/27/18 04:22 Hemoglobin A1c 5.3 % (4-6) 09/26/18 17:28 Lactic Acid 1.50 mmol/L (0.7-2.0) 09/26/18 14:35 Calcium 8.8 mg/dL (8.4-10.2) 09/27/18 04:22 Total Bilirubin 0.20 mg/dL (0.1-1.2) 09/27/18 04:22 AST 22 units/L (5-40) 09/27/18 04:22 ALT 30 units/L (7-56) 09/27/18 04:22 Alkaline Phosphatase 63 units/L (35-129) 09/27/18 04:22 Total Creatine Kinase 70 units/L (55-170) 09/26/18 14:35 CK-MB (CK-2) 3.2 ng/mL (0.0-4.0) 09/26/18 14:35 CK-MB (CK-2) Rel Index 4.5 (0-4) H 09/26/18 14:35 Troponin T 0.090 ng/mL (0.00-0.029) H 09/27/18 04:22 Total Protein 5.4 g/dL (6.3-8.2) L 09/27/18 04:22 Albumin 3.2 g/dL (3.9-5) L 09/27/18 04:22 Albumin/Globulin Ratio 1.5 % 09/27/18 04:22 Triglycerides 112 mg/dL (2-149) 09/26/18 14:35 Cholesterol 148 mg/dL (50-199) 09/26/18 14:35 LDL Cholesterol Direct 107 mg/dL (50-130) 09/26/18 14:35 HDL Cholesterol 35 mg/dL (40-59) L 09/26/18 14:35 Cholesterol/HDL Ratio 4.22 % 09/26/18 14:35 Urine Color Yellow (Yellow) 09/26/18 14:07 Urine Turbidity Clear (Clear) 09/26/18 14:07 Urine pH 6.0 (5.0-7.0) 09/26/18 14:07 Ur Specific [place] 1.016 (1.003-1.030) 09/26/18 14:07 Urine Protein <15 mg/dl mg/dL (Negative) 09/26/18 14:07 Urine Glucose (UA) Neg mg/dL (Negative) 09/26/18 14:07 Urine Ketones Tr mg/dL (Negative) 09/26/18 14:07 Urine Blood Neg (Negative) 09/26/18 14:07 Urine Nitrite Neg (Negative) 09/26/18 14:07 Urine Bilirubin Neg (Negative) 09/26/18 14:07 Urine Urobilinogen < 2.0 mg/dL (<2.0) 09/26/18 14:07 Ur Leukocyte Esterase Neg (Negative) 09/26/18 14:07 Urine WBC (Auto) 1.0 /HPF (0.0-6.0) 09/26/18 14:07 Urine RBC (Auto) 2.0 /HPF (0.0-6.0) 09/26/18 14:07 Urine Bacteria (Auto) 1+ /HPF (Negative) 09/26/18 14:07 Urine Mucus Few /HPF 09/26/18 14:07 Salicylates < 0.3 mg/dL (2.8-20.0) L 09/26/18 14:35 Urine Opiates Screen Presumptive negative 09/26/18 14:07 Urine Methadone Screen Presumptive negative 09/26/18 14:07 Acetaminophen < 5.0 ug/mL (10.0-30.0) L 09/26/18 14:35 Ur Barbiturates Screen Presumptive negative 09/26/18 14:07 Ur Phencyclidine Scrn Presumptive negative 09/26/18 14:07 Ur Amphetamines Screen Presumptive negative 09/26/18 14:07 U Benzodiazepines Scrn Presumptive negative 09/26/18 14:07 Urine Cocaine Screen Presumptive negative 09/26/18 14:07 U Marijuana (THC) Screen Presumptive negative 09/26/18 14:07 Drugs of Abuse Note Disclamer 09/26/18 14:07 Nutrition/Malnutrition Assess - Dietary Evaluation Nutrition/Malnutrition Findings: Nutrition Notes Start: 09/27/18 11:01 Freq: Status: Active Protocol: Document 09/28/18 10:51 TW (Rec: 09/28/18 10:59 TW [email or web address]) Co-Sign 09/28/18 10:51 LP Nutrition Notes Initial or Follow up Reassessment Current Diagnosis Sepsis Other Pertinent Diagnosis Dementia, DVT Current Diet Cardiac Labs/Tests Reviewed. 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 Pt denied N /V/D and chewing/swallowing difficulties. Pt stated he is unsure if he has lost any wt recently. No signs of wasting. Percent of energy/protein needs met: 57%/54% #1 Nutrition Diagnosis Inadequate oral intake Etiology Dementia As Evidenced by Signs and Symptoms Eating less than 50% of meals and meeting less than 75% of kcal and protein needs Is patient on ventilator? No Is Patient Ambulatory and/or Out of Bed Yes REE-([facility]-ambulatory/OOB) [ 1850.550 NUTR.MSJOOB] Calculation Used for Recommendations [facility] Additional Notes Protein needs: (1.0-1.2 g/kg) (77-92 g/day) Fluid needs: 1ml/ kcal Nutrition Intervention Change Diet Order: continue current Add Supplement/Snack (indicate name/kcal Ensure Enlive daily /protein ) Provides kCal: 250 Provides Protein (gm) 20 Goal #1 Meet at least 75% of kcal and protein needs by PO and ONS intake Goal #2 ONS tolerance Anticipated Discharge Needs: Cardiac Diet Follow-Up By: 10/03/18 Additional Comments F/U for PO and ONS intake
--- NOTE | 2018-09-28 16:04 | Progress Note ---
Assessment and Plan - Patient Problems (1) Altered mental state Current Visit: Yes Status: Acute Qualifiers: Altered mental status type: unspecified Qualified Code(s): R41.82 - Altered mental status, unspecified Plan to address problem: Patient was alert and oriented Cooperative during examination (2) Confusion Current Visit: Yes Status: Acute Plan to address problem: Resolved (3) Elevated troponin Current Visit: Yes Status: Acute Plan to address problem: Patient didn't have any chest pain, echo was normal and cardiology cleared for discharge (4) Falls frequently Current Visit: Yes Status: Acute Plan to address problem: The PT OT evaluation (5) Hallucination Current Visit: Yes Status: Acute Plan to address problem: Psych will see the patient tomorrow. (6) Near syncope Current Visit: Yes Status: Acute (7) Psychosis Current Visit: Yes Status: Acute Plan to address problem: Patient was initially presented to the ED for [facility]. Yes[facility] was done [facility] and patient was sent to the 5th floor and send back to the 4th floor. Which delayed the patient care, we have to re consult psych and will be seen by psych tomorrow. History Interval history: Patient was seen and evaluated, he was calm and cooprative Hospitalist Physical - Physical exam Narrative exam: Not in cardiopulmonary distress. The patient appeared well nourished and normally developed. Vital signs as documented. Head exam is unremarkable. No scleral icterus . Neck is without jugular venous distension, thyromegaly, or carotid bruits. Lungs are clear to auscultation. Cardiac exam reveals regular rate and Rhythm. First and second heart sounds normal. No murmurs, rubs or gallops. Abdominal exam reveals normal bowel sounds, no masses, no organomegaly and no aortic enlargement. Extremities are nonedematous and both femoral and pedal pulses are normal. PSYCHIATRIC CNS: Alert and oriented 3. No focal weakness. - Constitutional Vitals: Temp Pulse Resp BP Pulse Ox 98.0 F 101 H 20 106/61 97 09/28/18 15:14 09/28/18 15:14 09/28/18 15:14 09/28/18 15:14 09/28/18 15:14 General appearance: Present: no acute distress Results - Labs CBC & Chem 7: 09/28/18 04:51 09/27/18 04:22 Labs: Laboratory Last Values WBC 6.4 K/mm3 (4.5-11.0) 09/26/18 14:35 RBC 2.74 M/mm3 (3.65-5.03) L 09/26/18 14:35 Hgb 9.4 gm/dl (11.8-15.2) L 09/26/18 17:28 Hct 26.9 % (35.5-45.6) L 09/26/18 17:28 MCV 94 fl (84-94) 09/26/18 14:35 MCH 34 pg (28-32) H 09/26/18 14:35 MCHC 36 % (32-34) H 09/26/18 14:35 RDW 14.3 % (13.2-15.2) 09/26/18 14:35 Plt Count 318 K/mm3 (140-440) 09/28/18 04:51 Lymph % (Auto) 21.3 % (13.4-35.0) 09/26/18 14:35 [place] % (Auto) 9.0 % (0.0-7.3) H 09/26/18 14:35 Eos % (Auto) 2.6 % (0.0-4.3) 09/26/18 14:35 Baso % (Auto) 0.8 % (0.0-1.8) 09/26/18 14:35 Lymph # 1.4 K/mm3 (1.2-5.4) 09/26/18 14:35 [place] # 0.6 K/mm3 (0.0-0.8) 09/26/18 14:35 Eos # 0.2 K/mm3 (0.0-0.4) 09/26/18 14:35 Baso # 0.1 K/mm3 (0.0-0.1) 09/26/18 14:35 Seg Neutrophils % 66.3 % (40.0-70.0) 09/26/18 14:35 Seg Neutrophils # 4.2 K/mm3 (1.8-7.7) 09/26/18 14:35 PT 13.7 Sec. (12.2-14.9) 09/26/18 17:28 INR 0.99 (0.87-1.13) 09/26/18 17:28 APTT 29.5 Sec. (24.2-36.6) 09/26/18 17:28 Sodium 140 mmol/L (137-145) 09/27/18 04:22 Potassium 4.5 mmol/L (3.6-5.0) 09/27/18 04:22 Chloride 105.7 mmol/L (98-107) 09/27/18 04:22 Carbon Dioxide 24 mmol/L (22-30) 09/27/18 04:22 Anion Gap 15 mmol/L 09/27/18 04:22 BUN 20 mg/dL (9-20) 09/27/18 04:22 Creatinine 1.0 mg/dL (0.8-1.5) 09/27/18 04:22 Estimated GFR > 60 ml/min 09/27/18 04:22 BUN/Creatinine Ratio 20 % 09/27/18 04:22 Glucose 83 mg/dL (75-100) 09/27/18 04:22 Hemoglobin A1c 5.3 % (4-6) 09/26/18 17:28 Lactic Acid 1.50 mmol/L (0.7-2.0) 09/26/18 14:35 Calcium 8.8 mg/dL (8.4-10.2) 09/27/18 04:22 Total Bilirubin 0.20 mg/dL (0.1-1.2) 09/27/18 04:22 AST 22 units/L (5-40) 09/27/18 04:22 ALT 30 units/L (7-56) 09/27/18 04:22 Alkaline Phosphatase 63 units/L (35-129) 09/27/18 04:22 Total Creatine Kinase 70 units/L (55-170) 09/26/18 14:35 CK-MB (CK-2) 3.2 ng/mL (0.0-4.0) 09/26/18 14:35 CK-MB (CK-2) Rel Index 4.5 (0-4) H 09/26/18 14:35 Troponin T 0.090 ng/mL (0.00-0.029) H 09/27/18 04:22 Total Protein 5.4 g/dL (6.3-8.2) L 09/27/18 04:22 Albumin 3.2 g/dL (3.9-5) L 09/27/18 04:22 Albumin/Globulin Ratio 1.5 % 09/27/18 04:22 Triglycerides 112 mg/dL (2-149) 09/26/18 14:35 Cholesterol 148 mg/dL (50-199) 09/26/18 14:35 LDL Cholesterol Direct 107 mg/dL (50-130) 09/26/18 14:35 HDL Cholesterol 35 mg/dL (40-59) L 09/26/18 14:35 Cholesterol/HDL Ratio 4.22 % 09/26/18 14:35 Urine Color Yellow (Yellow) 09/26/18 14:07 Urine Turbidity Clear (Clear) 09/26/18 14:07 Urine pH 6.0 (5.0-7.0) 09/26/18 14:07 Ur Specific [place] 1.016 (1.003-1.030) 09/26/18 14:07 Urine Protein <15 mg/dl mg/dL (Negative) 09/26/18 14:07 Urine Glucose (UA) Neg mg/dL (Negative) 09/26/18 14:07 Urine Ketones Tr mg/dL (Negative) 09/26/18 14:07 Urine Blood Neg (Negative) 09/26/18 14:07 Urine Nitrite Neg (Negative) 09/26/18 14:07 Urine Bilirubin Neg (Negative) 09/26/18 14:07 Urine Urobilinogen < 2.0 mg/dL (<2.0) 09/26/18 14:07 Ur Leukocyte Esterase Neg (Negative) 09/26/18 14:07 Urine WBC (Auto) 1.0 /HPF (0.0-6.0) 09/26/18 14:07 Urine RBC (Auto) 2.0 /HPF (0.0-6.0) 09/26/18 14:07 Urine Bacteria (Auto) 1+ /HPF (Negative) 09/26/18 14:07 Urine Mucus Few /HPF 09/26/18 14:07 Salicylates < 0.3 mg/dL (2.8-20.0) L 09/26/18 14:35 Urine Opiates Screen Presumptive negative 09/26/18 14:07 Urine Methadone Screen Presumptive negative 09/26/18 14:07 Acetaminophen < 5.0 ug/mL (10.0-30.0) L 09/26/18 14:35 Ur Barbiturates Screen Presumptive negative 09/26/18 14:07 Ur Phencyclidine Scrn Presumptive negative 09/26/18 14:07 Ur Amphetamines Screen Presumptive negative 09/26/18 14:07 U Benzodiazepines Scrn Presumptive negative 09/26/18 14:07 Urine Cocaine Screen Presumptive negative 09/26/18 14:07 U Marijuana (THC) Screen Presumptive negative 09/26/18 14:07 Drugs of Abuse Note Disclamer 09/26/18 14:07 Nutrition/Malnutrition Assess - Dietary Evaluation Nutrition/Malnutrition Findings: Nutrition Notes Start: 09/27/18 11: 01 Freq: Status: Active Protocol: Document 09/28/18 10:51 TW (Rec: 09/28/18 10:59 TW [email or web address]) Co-Sign 09/28/18 10:51 LP Nutrition Notes Initial or Follow up Assessment Current Diagnosis Sepsis Other Pertinent Diagnosis Dementia, DVT Current Diet Cardiac Labs/Tests Reviewed. 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 Pt denied N /V/D and chewing/swallowing difficulties. Pt stated he is unsure if he has lost any wt recently. No signs of wasting. Percent of energy/protein needs met: 57%/54% #1 Nutrition Diagnosis Inadequate oral intake Etiology Dementia As Evidenced by Signs and Symptoms Eating less than 50% of meals and meeting less than 75% of kcal and protein needs Is patient on ventilator? No Is Patient Ambulatory and/or Out of Bed Yes REE-([place]-. or-ambulatory/OOB) [ 0780.550 NUTR.MSJOOB] Calculation Used for Recommendations [facility] Additional Notes Protein needs: (1.0-1.2 g/kg) (77-92 g/day) Fluid needs: 1ml/ kcal Nutrition Intervention Change Diet Order: continue current Add Supplement/Snack (indicate name/kcal Ensure Enlive daily /protein ) Provides kCal: 350 Provides Protein (gm) 20 Goal #1 Meet at least 75% of kcal and protein needs by PO and ONS intake Goal #2 ONS tolerance Anticipated Discharge Needs: Cardiac Diet Follow-Up By: 10/03/18 Additional Comments F/U for PO and ONS intake
[2018-09-28] MEDS: SODIUM CHLORIDE FLUSH SYRINGE 10 ML IV SCH ×2 (21:57→21:58)
[2018-09-28] MEDS: REMERON PO SCH (21:57)
[2018-09-28] MEDS: RisperDAL PO SCH (21:57)
[2018-09-29] MEDS: DIOVAN PO SCH (10:53)
[2018-09-29] MEDS: NORVASC PO SCH (10:53)
[2018-09-29] MEDS: LOVENOX SUB-Q SCH ×2 (10:54→22:53)
[2018-09-29] MEDS: SODIUM CHLORIDE FLUSH SYRINGE 10 ML IV SCH ×2 (10:54→22:19)
--- NOTE | 2018-09-29 12:52 | Progress Note ---
Assessment and Plan - Patient Problems (1) Altered mental state Current Visit: Yes Status: Acute Qualifiers: Altered mental status type: unspecified Qualified Code(s): R41.82 - Altered mental status, unspecified Plan to address problem: Patient was alert and oriented Cooperative during examination (2) Confusion Current Visit: Yes Status: Acute Plan to address problem: Resolved (3) Elevated troponin Current Visit: Yes Status: Acute Plan to address problem: Patient didn't have any chest pain, echo was normal and cardiology cleared for discharge (4) Falls frequently Current Visit: Yes Status: Acute Plan to address problem: The PT OT evaluation (5) Hallucination Current Visit: Yes Status: Acute Plan to address problem: Psych will see the patient tomorrow. (6) Near syncope Current Visit: Yes Status: Acute (7) Psychosis Current Visit: Yes Status: Acute Plan to address problem: Patient was initially presented to the ED for [facility]. Yesterday workup was done and [facility] and patient was sent to the 5th floor and send back to the 4th floor. Which delayed the patient care, we have to re consult psych and will be seen by psych tomorrow. History Interval history: Patient was seen and evaluated, he was calm and cooprative. No nursing issues overnight Hospitalist Physical - Physical exam Narrative exam: Not in cardiopulmonary distress. The patient appeared well nourished and normally developed. Vital signs as documented. Head exam is unremarkable. No scleral icterus . Neck is without jugular venous distension, thyromegaly, or carotid bruits. Lungs are clear to auscultation. Cardiac exam reveals regular rate and Rhythm. First and second heart sounds normal. No murmurs, rubs or gallops. Abdominal exam reveals normal bowel sounds, no masses, no organomegaly and no aortic enlargement. Extremities are nonedematous and both femoral and pedal pulses are normal. 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 No focal weakness. - Constitutional Vitals: Temp Pulse Resp BP Pulse Ox 97.9 F 89 20 145/72 98 09/29/18 06:17 09/29/18 06:17 09/29/18 06:17 09/29/18 06:17 09/29/18 06:17 General appearance: Present: no acute distress Results - Labs CBC & Chem 7: 09/28/18 04:51 09/27/18 04:22 Labs: Laboratory Last Values WBC 6.4 K/mm3 (4.5-11.0) 09/26/18 14:35 RBC 2.74 M/mm3 (3.65-5.03) L 09/26/18 14:35 Hgb 9.4 gm/dl (11.8-15.2) L 09/26/18 17:28 Hct 26.9 % (35.5-45.6) L 09/26/18 17:28 MCV 94 fl (84-94) 09/26/18 14:35 MCH 34 pg (28-32) H 09/26/18 14:35 MCHC 36 % (32-34) H 09/26/18 14:35 RDW 14.3 % (13.2-15.2) 09/26/18 14:35 Plt Count 318 K/mm3 (140-440) 09/28/18 04:51 Lymph % (Auto) 21.3 % (13.4-35.0) 09/26/18 14:35 [place] % (Auto) 9.0 % (0.0-7.3) H 09/26/18 14:35 Eos % (Auto) 2.6 % (0.0-4.3) 09/26/18 14:35 Baso % (Auto) 0.8 % (0.0-1.8) 09/26/18 14:35 Lymph # 1.4 K/mm3 (1.2-5.4) 09/26/18 14:35 [place] # 0.6 K/mm3 (0.0-0.8) 09/26/18 14:35 Eos # 0.2 K/mm3 (0.0-0.4) 09/26/18 14:35 Baso # 0.1 K/mm3 (0.0-0.1) 09/26/18 14:35 Seg Neutrophils % 66.3 % (40.0-70.0) 09/26/18 14:35 Seg Neutrophils # 4.2 K/mm3 (1.8-7.7) 09/26/18 14:35 PT 13.7 Sec. (12.2-14.9) 09/26/18 17:28 INR 0.99 (0.87-1.13) 09/26/18 17:28 APTT 29.5 Sec. (24.2-36.6) 09/26/18 17:28 Sodium 140 mmol/L (137-145) 09/27/18 04:22 Potassium 4.5 mmol/L (3.6-5.0) 09/27/18 04:22 Chloride 105.7 mmol/L (98-107) 09/27/18 04:22 Carbon Dioxide 24 mmol/L (22-30) 09/27/18 04:22 Anion Gap 15 mmol/L 09/27/18 04:22 BUN 20 mg/dL (9-20) 09/27/18 04:22 Creatinine 1.0 mg/dL (0.8-1.5) 09/27/18 04:22 Estimated GFR > 60 ml/min 09/27/18 04:22 BUN/Creatinine Ratio 20 % 09/27/18 04:22 Glucose 83 mg/dL (75-100) 09/27/18 04:22 Hemoglobin A1c 5.3 % (4-6) 09/26/18 17:28 Lactic Acid 1.50 mmol/L (0.7-2.0) 09/26/18 14:35 Calcium 8.8 mg/dL (8.4-10.2) 09/27/18 04:22 Total Bilirubin 0.20 mg/dL (0.1-1.2) 09/27/18 04:22 AST 22 units/L (5-40) 09/27/18 04:22 ALT 30 units/L (7-56) 09/27/18 04:22 Alkaline Phosphatase 63 units/L (35-129) 09/27/18 04:22 Total Creatine Kinase 70 units/L (55-170) 09/26/18 14:35 CK-MB (CK-2) 3.2 ng/mL (0.0-4.0) 09/26/18 14:35 CK-MB (CK-2) Rel Index 4.5 (0-4) H 09/26/18 14:35 Troponin T 0.090 ng/mL (0.00-0.029) H 09/27/18 04:22 Total Protein 5.4 g/dL (6.3-8.2) L 09/27/18 04:22 Albumin 3.2 g/dL (3.9-5) L 09/27/18 04:22 Albumin/Globulin Ratio 1.5 % 09/27/18 04:22 Triglycerides 112 mg/dL (2-149) 09/26/18 14:35 Cholesterol 148 mg/dL (50-199) 09/26/18 14:35 LDL Cholesterol Direct 107 mg/dL (50-130) 09/26/18 14:35 HDL Cholesterol 35 mg/dL (40-59) L 09/26/18 14:35 Cholesterol/HDL Ratio 4.22 % 09/26/18 14:35 Urine Color Yellow (Yellow) 09/26/18 14:07 Urine Turbidity Clear (Clear) 09/26/18 14:07 Urine pH 6.0 (5.0-7.0) 09/26/18 14:07 Ur Specific [place] 1.016 (1.003-1.030) 09/26/18 14:07 Urine Protein <15 mg/dl mg/dL (Negative) 09/26/18 14:07 Urine Glucose (UA) Neg mg/dL (Negative) 09/26/18 14:07 Urine Ketones Tr mg/dL (Negative) 09/26/18 14:07 Urine Blood Neg (Negative) 09/26/18 14:07 Urine Nitrite Neg (Negative) 09/26/18 14:07 Urine Bilirubin Neg (Negative) 09/26/18 14:07 Urine Urobilinogen < 2.0 mg/dL (<2.0) 09/26/18 14:07 Ur Leukocyte Esterase Neg (Negative) 09/26/18 14:07 Urine WBC (Auto) 1.0 /HPF (0.0-6.0) 09/26/18 14:07 Urine RBC (Auto) 2.0 /HPF (0.0-6.0) 09/26/18 14:07 Urine Bacteria (Auto) 1+ /HPF (Negative) 09/26/18 14:07 Urine Mucus Few /HPF 09/26/18 14:07 Salicylates < 0.3 mg/dL (2.8-20.0) L 09/26/18 14:35 Urine Opiates Screen Presumptive negative 09/26/18 14:07 Urine Methadone Screen Presumptive negative 09/26/18 14:07 Acetaminophen < 5.0 ug/mL (10.0-30.0) L 09/26/18 14:35 Ur Barbiturates Screen Presumptive negative 09/26/18 14:07 Ur Phencyclidine Scrn Presumptive negative 09/26/18 14:07 Ur Amphetamines Screen Presumptive negative 09/26/18 14:07 U Benzodiazepines Scrn Presumptive negative 09/26/18 14:07 Urine Cocaine Screen Presumptive negative 09/26/18 14:07 U Marijuana (THC) Screen Presumptive negative 09/26/18 14:07 Drugs of Abuse Note Disclamer 09/26/18 14:07 Nutrition/Malnutrition Assess - Dietary Evaluation Nutrition/Malnutrition Findings: Nutrition Notes Start: 09/27/18 11:01 Freq: Status: Active Protocol: Document 09/28/18 10:51 TW (Rec: 09/28/18 10:59 TW [email or web address]) Co-Sign 09/28/18 10:51 LP Nutrition Notes Initial or Follow up Assessment Current Diagnosis Sepsis Other Pertinent Diagnosis Dementia, DVT Current Diet Cardiac Labs/Tests Reviewed. 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 Pt stated he is unsure if he has lost any wt recently. No signs of wasting. Percent of energy/protein needs met: 57%/54% #1 Nutrition Diagnosis Inadequate oral intake Etiology Dementia As Evidenced by Signs and Symptoms Eating less than 50% of meals and meeting less than 75% of kcal and protein needs Is patient on ventilator? No Is Patient Ambulatory and/or Out of Bed Yes REE-([place]-St. Jeor-ambulatory/OOB) [ 4410.550 NUTR.MSJOOB] Calculation Used for Recommendations [place]-[facility] Jeor Additional Notes Protein needs: (1.0-1.2 g/kg) (77-92 g/day) Fluid needs: 1ml/ kcal Nutrition Intervention Change Diet Order: continue current Add Supplement/Snack (indicate name/kcal Ensure Enlive daily /protein ) Provides kCal: 350 Provides Protein (gm) 20 Goal #1 Meet at least 75% of kcal and protein needs by PO and ONS intake Goal #2 ONS tolerance Anticipated Discharge Needs: Cardiac Diet Follow-Up By: 10/03/18 Additional Comments F/U for PO and ONS intake
--- NOTE | 2018-09-29 20:12 | Consultation ---
History of Present Illness - Reason for Consult Consult date: 09/29/18 Reason for consult: Initial Psychiatric Evaluation - Chief Complaint Chief complaint: " I feel weak" - History of Present Psychiatric Illness Patient is a 88 year old male who presents to the emergency room with altered mental status. Patient was sent here by his [facility] for evaluation. Patient found to be confused by the [facility] staff and falling. Patient was brought in by EMS. Today the patient is calm and cooperative during the assessment. Upon entering the room patient can be seen reading the Bible. Patient is alert and oriented x 2 (person and place). Unable to fully assess patient due to confusion. Responses to questions are somewhat inappropriate at times due to confusion. He endorses anhedonia, decrease energy, decrease appetite, decrease sleep, auditory hallucinations, and paranoid delusions. He denies SI/HI's. Patient is medication compliant. Denies any side effects of medications. Current Psychiatric Medications: Remeron 15mg po QHS, Risperdal 0.5mg po QHS. Past Psychiatric History: No previous psychiatric diagnosis; no previous inpatient psychiatric hospitalizations; no outpatient psychiatrist; no previous suicide attempt. Past Medication Trials: Buspar- effective. History Trauma/Abuse: Patient denies sexual, physical, and mental abuse. Drug/Alcohol Abuse: Patient denies alcohol/drug abuse. Social History: Some College - highest level of education; lives at [facility]; 3 children; ; social security/ prison- income;appropriate support system. Family History of Psychiatric Illness/Substance Abuse: Patient denies. Medications and Allergies Allergies Allergy/AdvReac Type Severity Reaction Status Date / Time No Known Allergies Allergy Unverified 09/26/18 13:32 Home Medications Medication Instructions Recorded Confirmed Last Taken Type Amlodipine Besylate [Norvasc] 2.5 mg PO DAILY 09/26/18 09/26/18 Unknown History Divalproex ER [DepaKOTE ER] 250 mg PO QHS 09/26/18 09/26/18 Unknown History Losartan [Cozaar] 25 mg PO QDAY 09/26/18 09/26/18 Unknown History Melatonin 3 mg PO QHS 09/26/18 09/26/18 Unknown History Mirtazapine [Remeron] 15 mg PO QHS 09/26/18 09/26/18 Unknown History Valsartan 40 mg PO QDAY 09/26/18 09/26/18 Unknown History cefUROXime [Ceftin] 250 mg PO Q12H 09/26/18 09/26/18 Unknown History risperiDONE [Risperdal] 0.5 mg PO QHS 09/26/18 09/26/18 Unknown History Active Meds: Active Medications Acetaminophen (Tylenol) 650 mg PO Q4H PRN PRN Reason: Pain MILD(1-3)/Fever >100.5/PAULINO Amlodipine Besylate (Norvasc) 2.5 mg PO QDAY [facility] Last Admin: 09/29/18 10:53 Dose: 2.5 mg Documented by: Divalproex Sodium (Depakote Er) 250 mg PO QHS [facility] Last Admin: 09/28/18 21:57 Dose: 250 mg Documented by: Enoxaparin Sodium (Lovenox) 80 mg SUB-Q Q12HR [facility] Last Admin: 09/29/18 10:54 Dose: 80 mg Documented by: Hydromorphone HCl (Dilaudid) 0.5 mg IV Q3H PRN PRN Reason: Pain , Severe (7-10) Mirtazapine (Remeron) 15 mg PO QHS [facility] Last Admin: 09/28/18 21:57 Dose: 15 mg Documented by: Ondansetron HCl (Zofran) 4 mg IV Q8H PRN PRN Reason: Nausea And Vomiting Oxycodone/Acetaminophen (Percocet 5/325) 1 tab PO Q6H PRN PRN Reason: Pain, Moderate (4-6) Risperidone (Risperdal) 0.5 mg PO QHS [facility] Last Admin: 09/28/18 21:57 Dose: 0.5 mg Documented by: Sodium Chloride (Sodium Chloride Flush Syringe 10 Ml) 10 ml IV BID [facility] Last Admin: 09/29/18 10:54 Dose: 10 ml Documented by: Sodium Chloride (Sodium Chloride Flush Syringe 10 Ml) 10 ml IV PRN PRN PRN Reason: LINE FLUSH Valsartan (Diovan) 80 mg PO QDAY [facility] Last Admin: 09/29/18 10:53 Dose: 80 mg Documented by: Mental Status Exam - Vital signs Last Vital Signs Temp 97.9 F 09/29/18 06:17 Pulse 89 09/29/18 06:17 Resp 20 03/16/19 06:17 BP 145/72 09/29/18 06:17 Pulse Ox 98 09/29/18 06:17 - Exam Narrative exam: Mental Status Exam Appearance: calm, cooperative Behavior: regular eye contact; confused Speech: regular rate and tone Mood: " calm" Affect: appropriate Thought Process: circumstantial Thought Content: denies SI/HI, A/VH's, and delusions Motor Activity: sitting up in the bed Cognition: A/O x3 Insight: variable Judgment: variable Results Result Diagrams: 09/28/18 04:51 09/27/18 04:22 All other labs normal. Assessment and Plan Assessment and plan: Impression: PPHx Anxiety disorder. Neurocognitive Disorder. Today the patient is calm and cooperative during the assessment. Confusion noted. Alert and oriented x 2 ( person and place). He endorses symptoms of depression and psychosis ( paranoid delusions and auditory hallucinations). Medical: Troponin T elevated - 0.090 09/27/18 Recommendation/Plan: 1. Continue 1013. 2. Continue Remeron 15mg po QHS and Risperdal 0.5mg po QHS. Discussed possible metabolic side effects of Risperdal with the patient. Discussed possible suicidality/medication induced diana with the patient reference Remeron. 3. Attempt to gain collateral to determine proper disposition. Disposition: Once medically cleared the patient will be referred to inpatient psychiatric services. Will staff with Dr. Carter.
[2018-09-29] MEDS: REMERON PO SCH (22:17)
[2018-09-29] MEDS: RisperDAL PO SCH (22:18)
--- NOTE | 2018-09-30 09:35 | Progress Note ---
Assessment and Plan Assessment and plan: Elevated troponin -Probably secondary to demand ischemia -On medical management -Normal LVEF by echocardiogram 08/2018. -No further w/u by cardiology Dementia with behavioral disturbances -Improved Acute psychosis -Improved -Continue Remeron 15mg po QHS and Risperdal 0.5mg po QHS. -Psych following Near syncope -probably secondary to right carotid artery stenosis -carotid doppler ultrasound showed 50-69% stenosis RT ICA -On aspirin and statin Hypertension -controlled Dyslipidemia -On statin Disposition: Discharge planning by psych team History Interval history: Patient reports feeling better today. He has no new complaints. Hospitalist Physical - Constitutional Vitals: Temp Pulse Resp BP Pulse Ox 98.6 F 87 20 141/70 98 09/30/18 08:34 09/30/18 08:34 09/30/18 08:34 09/30/18 08:34 09/30/18 08:34 General appearance: Present: no acute distress - EENT Eyes: Present: PERRL, EOM intact ENT: hearing intact, clear oral mucosa - Neck Neck: Present: supple - Respiratory Respiratory effort: normal Respiratory: bilateral: CTA - Cardiovascular Rhythm: regular Heart Sounds: Present: S1 & S2 - Extremities Extremities: No edema - Abdominal General gastrointestinal: soft, non-tender, non-distended, normal bowel sounds - Neurologic Neurologic: CNII-XII intact Results - Labs CBC & Chem 7: 09/30/18 05:06 09/27/18 04:22 Labs: Laboratory Last Values WBC 6.4 K/mm3 (4.5-11.0) 09/26/18 14:35 RBC 2.74 M/mm3 (3.65-5.03) L 09/26/18 14:35 Hgb 9.4 gm/dl (11.8-15.2) L 09/26/18 17:28 Hct 26.9 % (35.5-45.6) L 09/26/18 17:28 MCV 94 fl (84-94) 09/26/18 14:35 MCH 34 pg (28-32) H 09/26/18 14:35 MCHC 36 % (32-34) H 09/26/18 14:35 RDW 14.3 % (13.2-15.2) 09/26/18 14:35 Plt Count 344 K/mm3 (140-440) 09/30/18 05:06 Lymph % (Auto) 21.3 % (13.4-35.0) 09/26/18 14:35 [place] % (Auto) 9.0 % (0.0-7.3) H 09/26/18 14:35 Eos % (Auto) 2.6 % (0.0-4.3) 09/26/18 14:35 Baso % (Auto) 0.8 % (0.0-1.8) 09/26/18 14:35 Lymph # 1.4 K/mm3 (1.2-5.4) 09/26/18 14:35 [place] # 0.6 K/mm3 (0.0-0.8) 09/26/18 14:35 Eos # 0.2 K/mm3 (0.0-0.4) 09/26/18 14:35 Baso # 0.1 K/mm3 (0.0-0.1) 09/26/18 14:35 Seg Neutrophils % 66.3 % (40.0-70.0) 09/26/18 14:35 Seg Neutrophils # 4.2 K/mm3 (1.8-7.7) 09/26/18 14:35 PT 13.7 Sec. (12.2-14.9) 09/26/18 17:28 INR 0.99 (0.87-1.13) 09/26/18 17:28 APTT 29.5 Sec. (24.2-36.6) 09/26/18 17:28 Sodium 140 mmol/L (137-145) 09/27/18 04:22 Potassium 4.5 mmol/L (3.6-5.0) 09/27/18 04:22 Chloride 105.7 mmol/L (98-107) 09/27/18 04:22 Carbon Dioxide 24 mmol/L (22-30) 09/27/18 04:22 Anion Gap 15 mmol/L 09/27/18 04:22 BUN 20 mg/dL (9-20) 09/27/18 04:22 Creatinine 1.0 mg/dL (0.8-1.5) 09/27/18 04:22 Estimated GFR > 60 ml/min 09/27/18 04:22 BUN/Creatinine Ratio 20 % 09/27/18 04:22 Glucose 83 mg/dL (75-100) 09/27/18 04:22 Hemoglobin A1c 5.3 % (4-6) 09/26/18 17:28 Lactic Acid 1.50 mmol/L (0.7-2.0) 09/26/18 14:35 Calcium 8.8 mg/dL (8.4-10.2) 09/27/18 04:22 Total Bilirubin 0.20 mg/dL (0.1-1.2) 09/27/18 04:22 AST 22 units/L (5-40) 09/27/18 04:22 ALT 30 units/L (7-56) 09/27/18 04:22 Alkaline Phosphatase 63 units/L (35-129) 09/27/18 04:22 Total Creatine Kinase 70 units/L (55-170) 09/26/18 14:35 CK-MB (CK-2) 3.2 ng/mL (0.0-4.0) 09/26/18 14:35 CK-MB (CK-2) Rel Index 4.5 (0-4) H 09/26/18 14:35 Troponin T 0.090 ng/mL (0.00-0.029) H 09/27/18 04:22 Total Protein 5.4 g/dL (6.3-8.2) L 09/27/18 04:22 Albumin 3.2 g/dL (3.9-5) L 09/27/18 04:22 Albumin/Globulin Ratio 1.5 % 09/27/18 04:22 Triglycerides 112 mg/dL (2-149) 09/26/18 14:35 Cholesterol 148 mg/dL (50-199) 09/26/18 14:35 LDL Cholesterol Direct 107 mg/dL (50-130) 09/26/18 14:35 HDL Cholesterol 35 mg/dL (40-59) L 09/26/18 14:35 Cholesterol/HDL Ratio 4.22 % 09/26/18 14:35 Urine Color Yellow (Yellow) 09/26/18 14:07 Urine Turbidity Clear (Clear) 09/26/18 14:07 Urine pH 6.0 (5.0-7.0) 09/26/18 14:07 Ur Specific Breeding 1.016 (1.003-1.030) 09/26/18 14:07 Urine Protein <15 mg/dl mg/dL (Negative) 09/26/18 14:07 Urine Glucose (UA) Neg mg/dL (Negative) 09/26/18 14:07 Urine Ketones Tr mg/dL (Negative) 09/26/18 14:07 Urine Blood Neg (Negative) 09/26/18 14:07 Urine Nitrite Neg (Negative) 09/26/18 14:07 Urine Bilirubin Neg (Negative) 09/26/18 14:07 Urine Urobilinogen < 2.0 mg/dL (<2.0) 09/26/18 14:07 Ur Leukocyte Esterase Neg (Negative) 09/26/18 14:07 Urine WBC (Auto) 1.0 /HPF (0.0-6.0) 09/26/18 14:07 Urine RBC (Auto) 2.0 /HPF (0.0-6.0) 09/26/18 14:07 Urine Bacteria (Auto) 1+ /HPF (Negative) 09/26/18 14:07 Urine Mucus Few /HPF 09/26/18 14:07 Salicylates < 0.3 mg/dL (2.8-20.0) L 09/26/18 14:35 Urine Opiates Screen Presumptive negative 09/26/18 14:07 Urine Methadone Screen Presumptive negative 09/26/18 14:07 Acetaminophen < 5.0 ug/mL (10.0-30.0) L 09/26/18 14:35 Ur Barbiturates Screen Presumptive negative 09/26/18 14:07 Ur Phencyclidine Scrn Presumptive negative 09/26/18 14:07 Ur Amphetamines Screen Presumptive negative 09/26/18 14:07 U Benzodiazepines Scrn Presumptive negative 09/26/18 14:07 Urine Cocaine Screen Presumptive negative 09/26/18 14:07 U Marijuana (THC) Screen Presumptive negative 09/26/18 14:07 Drugs of Abuse Note Disclamer 09/26/18 14:07 Nutrition/Malnutrition Assess - Dietary Evaluation Nutrition/Malnutrition Findings: Nutrition Notes Start: 09/27/18 11:01 Freq: Status: Active Protocol: Document 09/28/18 10:51 TW (Rec: 09/28/18 10:59 TW [email or web address]) Co-Sign 09/28/18 10:51 LP Nutrition Notes Initial or Follow up Assessment Current Diagnosis Sepsis Other Pertinent Diagnosis Dementia, DVT Current Diet Cardiac Labs/Tests Reviewed. Pertinent Medications Lovenox Height 5 ft 8 in Weight 77.4 kg Tatums Body Weight (kg) 70.00 BMI 25.9 Intake Prior to Admission Good Weight Status Appropriate Subjective/Other Information Pt stated he is eating about 50% of his meals and had a good appetite [employer]. Pt denied N /V/D and chewing/swallowing difficulties. Pt stated he is unsure if he has lost any wt recently. No signs of wasting. Percent of energy/protein needs met: 57%/54% #1 Nutrition Diagnosis Inadequate oral intake Etiology Dementia As Evidenced by Signs and Symptoms Eating less than 50% of meals and meeting less than 75% of kcal and protein needs Is patient on ventilator? No Is Patient Ambulatory and/or Out of Bed Yes REE-([facility]-ambulatory/OOB) [ [id number] [id number]] Calculation Used for Recommendations [facility] Additional Notes Protein needs: (1.0-1.2 g/kg) (77-92 g/day) Fluid needs: 1ml/ kcal Nutrition Intervention Change Diet Order: continue current Add Supplement/Snack (indicate name/kcal Ensure Enlive daily /protein ) Provides kCal: 350 Provides Protein (gm) 20 Goal #1 Meet at least 75% of kcal and protein needs by PO and ONS intake Goal #2 ONS tolerance Anticipated Discharge Needs: Cardiac Diet Follow-Up By: 10/03/18 Additional Comments F/U for PO and ONS intake
[2018-09-30] MEDS: SODIUM CHLORIDE FLUSH SYRINGE 10 ML IV SCH ×2 (09:57→22:50)
[2018-09-30] MEDS: DIOVAN PO SCH (09:57)
[2018-09-30] MEDS: NORVASC PO SCH (09:57)
--- NOTE | 2018-09-30 11:39 | Progress Note ---
Subjective - Reason for Consult Consult date: 09/30/18 Reason for consult: Psychiatric Follow-up Evaluation - Chief Complaint Chief complaint: "I'm tired " Patient is a 88 year old male who presents to the emergency room with altered mental status. Patient was sent here by his [facility]-way for evaluation. Patient found to be confused by the [facility]-way staff and falling. Patient was brought in by EMS. Today the patient is calm and cooperative during the assessment. Mild confusion noted. Alert and oriented x 2. He reports appropriate sleep and appetite. He continues to endorse auditory hallucinations of others talking and mild paranoid delusions. He denies SI/HI's. Mental Status Exam - Vital signs Last Vital Signs Temp 98.6 F 09/30/18 08:34 Pulse 87 09/30/18 09:57 Resp 20 09/30/18 08:34 BP 141/70 09/30/18 09:57 Pulse Ox 98 09/30/18 08:34 - Exam Narrative exam: Mental Status Exam Appearance: calm, cooperative Behavior: regular eye contact; confused Speech: regular rate and tone Mood: " I'm tired" Affect: appropriate Thought Process: circumstantial Thought Content: denies SI/HI, A/VH's, and delusions Motor Activity: sitting up in the bed Cognition: A/O x3 Insight: variable Judgment: variable Assessment and Plan Impression: PPHx Anxiety disorder. Neurocognitive Disorder. Today the patient is calm and cooperative during the assessment. Confusion noted. Alert and oriented x 2 ( person and place). He endorses symptoms of depression and psychosis ( paranoid delusions and auditory hallucinations). Medical: Troponin T elevated - 0.090 09/27/18. Recommendation/Plan: 1. Continue 1013. 2. Continue Remeron 15mg po QHS and Risperdal 0.5mg po QHS. Discussed possible metabolic side effects of Risperdal with the patient. Discussed possible suicidality/medication induced diana with the patient reference Remeron. 3. Attempt to gain collateral to determine proper disposition. 4. Will reorder Troponin T. Disposition: Will reorder Troponin T and fax results/notify accepting facility. Patient will be referred to inpatient psychiatric services. Staffed with Dr. Carter.
[2018-09-30] MEDS: LOVENOX SUB-Q SCH (19:07)
[2018-09-30] MEDS: REMERON PO SCH (22:49)
[2018-09-30] MEDS: RisperDAL PO SCH (22:49)
[2018-09-30] MEDS: COREG PO SCH (22:49)
[2018-10-01] MEDS ORDERED: ASPIRIN PO SCH (10:00)
[2018-10-01] MEDS: LOVENOX SUB-Q SCH (13:18)
[2018-10-01] MEDS: BABY ASPIRIN PO SCH (13:19)
[2018-10-01] MEDS: COREG PO SCH ×2 (13:20→22:45)
[2018-10-01] MEDS: SODIUM CHLORIDE FLUSH SYRINGE 10 ML IV SCH ×2 (13:21→22:45)
[2018-10-01] MEDS: DIOVAN PO SCH (13:28)
--- NOTE | 2018-10-01 14:08 | Progress Note ---
Subjective - Reason for Consult Consult date: 10/01/18 Reason for consult: Psychaitry Follow-up - Chief Complaint Chief complaint: "Arleth" Patient is a 88 year old male who presents to the emergency room with altered mental status. Today the patient is cam and cooperative with some confusion during the assessment. Upon my arrival to the patient's room, he was feeding himself breakfast without assistance. He was able to state his , but struggled when asked about his current location. He stated that he slept well last night. He denies SI/HI's and AVH's. Per his assigned nurse, no behavioral disturbance by the patient overnight. No indications of side effects of his medications. Mental Status Exam - Vital signs Last Vital Signs Temp 97.9 F 10/01/18 13:09 Pulse 81 10/01/18 13:09 Resp 18 10/01/18 13:09 BP 105/54 10/01/18 13:09 Pulse Ox 98 10/01/18 13:09 - Exam Narrative exam: MSE: Appearance: calm, cooperative Behavior: regular eye contact Speech: regular rate and loud tone Mood: "okay" Affect: congruent to mood Thought Process: circumstantial Thought Content: denies SI/HI's and AVH's Motor Activity: sitting up in the bed Cognition: A/O x2, with some confusion. Insight: variable Judgment: variable to fair Assessment and Plan Impression: Unspecified Neuro Cog DO. Today the patient is calm, but confused during the assessment. Recommendation/Plan: Rescind 1013. Continue home medications Risperdal 0.5 mg PO HS, Remeron 15 mg PO HS, and Depakote 250 mg PO HS. Psy sign off. Recommend Delirium precautions below: 1. Frequently reorient patient and involve him/her in their care (simple explanations of procedures, tests, medications). 2. Lights on and shades open during daytime hours. 3. Write date and goals of care in a visible place. 4. Try to avoid unnecessary interruptions to sleep during nighttime hours. 5. Obtain glasses, hearing aids from home if patient uses these at baseline. 6. Avoid medications that may exacerbate delirium (especially narcotics, benzodiazepines, barbiturates, ambien, lunesta, and medications with excessive anticholinergic properties). Dispo: The patient pending SNF placement. Will staff with Dr Viral Metz.
--- NOTE | 2018-10-01 15:23 | Progress Note ---
Assessment and Plan Assessment and plan: Elevated troponin -Probably secondary to demand ischemia -On medical management -Normal LVEF by echocardiogram 08/2018. -No further w/u by cardiology Dementia with behavioral disturbances -Improved Acute psychosis -Resolved, off 1013 -Continue home medications: Risperdal 0.5 mg PO HS, Remeron 15 mg PO HS, and Depakote 250 mg PO HS. -Psych signed off Near syncope -probably secondary to right carotid artery stenosis -carotid doppler ultrasound showed 50-69% stenosis RT ICA -On aspirin and statin Hypertension -controlled Dyslipidemia -On statin Disposition: awaiting SNF placement History Interval history: Patient has no new complaints and no overnight issues reported Hospitalist Physical - Constitutional Vitals: Temp Pulse Resp BP Pulse Ox 97.9 F 81 18 105/54 98 10/01/18 13:09 10/01/18 13:09 10/01/18 13:09 10/01/18 13:09 10/01/18 13:09 General appearance: Present: no acute distress - EENT Eyes: Present: PERRL, EOM intact ENT: hearing intact, clear oral mucosa - Neck Neck: Present: supple - Respiratory Respiratory effort: normal Respiratory: bilateral: CTA - Cardiovascular Rhythm: regular Heart Sounds: Present: S1 & S2 - Extremities Extremities: No edema - Abdominal General gastrointestinal: soft, non-tender, non-distended, normal bowel sounds - Neurologic Neurologic: CNII-XII intact Results - Labs CBC & Chem 7: 09/30/18 05:06 09/27/18 04:22 Labs: Laboratory Last Values WBC 6.4 K/mm3 (4.5-11.0) 09/26/18 14:35 RBC 2.74 M/mm3 (3.65-5.03) L 09/26/18 14:35 Hgb 9.4 gm/dl (11.8-15.2) L 09/26/18 17:28 Hct 26.9 % (35.5-45.6) L 09/26/18 17:28 MCV 94 fl (84-94) 09/26/18 14:35 MCH 34 pg (28-32) H 09/26/18 14:35 MCHC 36 % (32-34) H 09/26/18 14:35 RDW 14.3 % (13.2-15.2) 09/26/18 14:35 Plt Count 344 K/mm3 (140-440) 09/30/18 05:06 Lymph % (Auto) 21.3 % (13.4-35.0) 09/26/18 14:35 [place] % (Auto) 9.0 % (0.0-7.3) H 09/26/18 14:35 Eos % (Auto) 2.6 % (0.0-4.3) 09/26/18 14:35 Baso % (Auto) 0.8 % (0.0-1.8) 09/26/18 14:35 Lymph # 1.4 K/mm3 (1.2-5.4) 09/26/18 14:35 [place] # 0.6 K/mm3 (0.0-0.8) 09/26/18 14:35 Eos # 0.2 K/mm3 (0.0-0.4) 09/26/18 14:35 Baso # 0.1 K/mm3 (0.0-0.1) 09/26/18 14:35 Seg Neutrophils % 66.3 % (40.0-70.0) 09/26/18 14:35 Seg Neutrophils # 4.2 K/mm3 (1.8-7.7) 09/26/18 14:35 PT 13.7 Sec. (12.2-14.9) 09/26/18 17:28 INR 0.99 (0.87-1.13) 09/26/18 17:28 APTT 29.5 Sec. (24.2-36.6) 09/26/18 17:28 Sodium 140 mmol/L (137-145) 09/27/18 04:22 Potassium 4.5 mmol/L (3.6-5.0) 09/27/18 04:22 Chloride 105.7 mmol/L (98-107) 09/27/18 04:22 Carbon Dioxide 24 mmol/L (22-30) 09/27/18 04:22 Anion Gap 15 mmol/L 09/27/18 04:22 BUN 20 mg/dL (9-20) 09/27/18 04:22 Creatinine 1.0 mg/dL (0.8-1.5) 09/27/18 04:22 Estimated GFR > 60 ml/min 09/27/18 04:22 BUN/Creatinine Ratio 20 % 09/27/18 04:22 Glucose 83 mg/dL (75-100) 09/27/18 04:22 Hemoglobin A1c 5.3 % (4-6) 09/26/18 17:28 Lactic Acid 1.50 mmol/L (0.7-2.0) 09/26/18 14:35 Calcium 8.8 mg/dL (8.4-10.2) 09/27/18 04:22 Total Bilirubin 0.20 mg/dL (0.1-1.2) 09/27/18 04:22 AST 22 units/L (5-40) 09/27/18 04:22 ALT 30 units/L (7-56) 09/27/18 04:22 Alkaline Phosphatase 63 units/L (35-129) 09/27/18 04:22 Total Creatine Kinase 70 units/L (55-170) 09/26/18 14:35 CK-MB (CK-2) 3.2 ng/mL (0.0-4.0) 09/26/18 14:35 CK-MB (CK-2) Rel Index 4.5 (0-4) H 09/26/18 14:35 Troponin T 0.012 ng/mL (0.00-0.029) 09/30/18 15:43 Total Protein 5.4 g/dL (6.3-8.2) L 09/27/18 04:22 Albumin 3.2 g/dL (3.9-5) L 09/27/18 04:22 Albumin/Globulin Ratio 1.5 % 09/27/18 04:22 Triglycerides 112 mg/dL (2-149) 09/26/18 14:35 Cholesterol 148 mg/dL (50-199) 09/26/18 14:35 LDL Cholesterol Direct 107 mg/dL (50-130) 09/26/18 14:35 HDL Cholesterol 35 mg/dL (40-59) L 09/26/18 14:35 Cholesterol/HDL Ratio 4.22 % 09/26/18 14:35 Urine Color Yellow (Yellow) 09/26/18 14:07 Urine Turbidity Clear (Clear) 09/26/18 14:07 Urine pH 6.0 (5.0-7.0) 09/26/18 14:07 Ur Specific [place] 1.016 (1.003-1.030) 09/26/18 14:07 Urine Protein <15 mg/dl mg/dL (Negative) 09/26/18 14:07 Urine Glucose (UA) Neg mg/dL (Negative) 09/26/18 14:07 Urine Ketones Tr mg/dL (Negative) 09/26/18 14:07 Urine Blood Neg (Negative) 09/26/18 14:07 Urine Nitrite Neg (Negative) 09/26/18 14:07 Urine Bilirubin Neg (Negative) 09/26/18 14:07 Urine Urobilinogen < 2.0 mg/dL (<2.0) 09/26/18 14:07 Ur Leukocyte Esterase Neg (Negative) 09/26/18 14:07 Urine WBC (Auto) 1.0 /HPF (0.0-6.0) 09/26/18 14:07 Urine RBC (Auto) 2.0 /HPF (0.0-6.0) 09/26/18 14:07 Urine Bacteria (Auto) 1+ /HPF (Negative) 09/26/18 14:07 Urine Mucus Few /HPF 09/26/18 14:07 Salicylates < 0.3 mg/dL (2.8-20.0) L 09/26/18 14:35 Urine Opiates Screen Presumptive negative 09/26/18 14:07 Urine Methadone Screen Presumptive negative 09/26/18 14:07 Acetaminophen < 5.0 ug/mL (10.0-30.0) L 09/26/18 14:35 Ur Barbiturates Screen Presumptive negative 09/26/18 14:07 Ur Phencyclidine Scrn Presumptive negative 09/26/18 14:07 Ur Amphetamines Screen Presumptive negative 09/26/18 14:07 U Benzodiazepines Scrn Presumptive negative 09/26/18 14:07 Urine Cocaine Screen Presumptive negative 09/26/18 14:07 U Marijuana (THC) Screen Presumptive negative 09/26/18 14:07 Drugs of Abuse Note Disclamer 09/26/18 14:07 Active Medications - Current Medications Current Medications: Generic Name Dose Route Start Last Admin Trade Name Freq PRN Reason Stop Dose Admin Acetaminophen 650 mg 09/26/18 17:01 Tylenol PO Q4H PRN Pain MILD(1-3)/Fever >100.5/PAULINO Aspirin 81 mg 10/01/18 10:00 03/18/19 13:19 Baby Aspirin PO 81 mg QDAY JORDYN Administration Atorvastatin Calcium 40 mg 09/30/18 22:00 09/30/18 22:49 Lipitor PO 40 mg QHS JORDYN Administration Carvedilol 12.5 mg 09/30/18 22:00 10/01/18 13:20 Coreg PO 12.5 mg BID JORDYN Administration Divalproex Sodium 250 mg 09/26/18 22:00 09/30/18 22:50 Depakote Er PO 250 mg QHS JORDYN Administration Enoxaparin Sodium 40 mg 10/01/18 10:00 10/01/18 13:18 Lovenox SUB-Q 40 mg QDAY@1000 [facility] Administration Mirtazapine 15 mg 09/26/18 22:00 09/30/18 22:49 Remeron PO 15 mg QHS [facility] Administration Ondansetron HCl 4 mg 09/26/18 17:01 Zofran IV Q8H PRN Nausea And Vomiting Oxycodone/Acetaminophen 1 tab 09/26/18 17:04 Percocet 5/325 PO Q6H PRN Pain, Moderate (4-6) Risperidone 0.5 mg 09/26/18 22:00 09/30/18 22:49 Risperdal PO 0.5 mg QHS [facility] Administration Sodium Chloride 10 ml 09/26/18 22:00 10/01/18 13:21 Sodium Chloride Flush Syringe 10 Ml IV 10 ml BID JORDYN Administration Sodium Chloride 10 ml 09/26/18 17:01 Sodium Chloride Flush Syringe 10 Ml IV PRN PRN LINE FLUSH Valsartan 80 mg 09/26/18 18:00 10/01/18 13:28 Diovan PO Not Given QDAY [facility] Nutrition/Malnutrition Assess - Dietary Evaluation Nutrition/Malnutrition Findings: Nutrition Notes Start: 09/27/18 11:01 Freq: Status: Active Protocol: Document 09/28/18 10:51 TW (Rec: 09/28/18 10:59 TW [email or web address]) Co-Sign 09/28/18 10:51 LP Nutrition Notes Initial or Follow up Assessment Current Diagnosis Sepsis Other Pertinent Diagnosis Dementia, DVT Current Diet Cardiac Labs/Tests Reviewed. Pertinent Medications Lovenox Height 5 ft 8 in Weight 77.4 kg [place] Body Weight (kg) 70.00 BMI 25.9 Intake Prior to Admission Good Weight Status Appropriate Subjective/Other Information Pt stated he is eating about 50% of his meals and had a good appetite [employer]. Pt denied N /V/D and chewing/swallowing difficulties. Pt stated he is unsure if he has lost any wt recently. No signs of wasting. Percent of energy/protein needs met: 57%/54% #1 Nutrition Diagnosis Inadequate oral intake Etiology Dementia As Evidenced by Signs and Symptoms Eating less than 50% of meals and meeting less than 75% of kcal and protein needs Is patient on ventilator? No Is Patient Ambulatory and/or Out of Bed Yes REE-([facility]-ambulatory/OOB) [ 1850.550 NUTR.[id number]] Calculation Used for Recommendations [facility] Additional Notes Protein needs: (1.0-1.2 g/kg) (77-92 g/day) Fluid needs: 1ml/ kcal Nutrition Intervention Change Diet Order: continue current Add Supplement/Snack (indicate name/kcal Ensure Enlive daily /protein ) Provides kCal: 350 Provides Protein (gm) 20 Goal #1 Meet at least 75% of kcal and protein needs by PO and ONS intake Goal #2 ONS tolerance Anticipated Discharge Needs: Cardiac Diet Follow-Up By: 10/03/18 Additional Comments F/U for PO and ONS intake
[2018-10-01] MEDS: REMERON PO SCH (22:44)
[2018-10-01] MEDS: RisperDAL PO SCH (22:44)
--- NOTE | 2018-10-02 09:28 | Progress Note ---
Assessment and Plan Assessment and plan: Elevated troponin -Probably secondary to demand ischemia -On medical management -Normal LVEF by echocardiogram 08/2018. -No further w/u by cardiology Dementia with behavioral disturbances -Improved Acute psychosis -Resolved, off 1013 -Continue home medications: Risperdal 0.5 mg PO HS, Remeron 15 mg PO HS, and Depakote 250 mg PO HS. -Psych signed off Near syncope -probably secondary to right carotid artery stenosis -carotid doppler ultrasound showed 50-69% stenosis RT ICA -On aspirin and statin Hypertension -controlled Dyslipidemia -On statin Disposition: awaiting SNF placement History Interval history: No new issues overnight. Hospitalist Physical - Constitutional Vitals: Temp Pulse Resp BP Pulse Ox 98.0 F 84 18 135/85 99 10/02/18 08:09 10/02/18 08:09 10/02/18 08:09 10/02/18 08:09 10/02/18 08:09 General appearance: Present: no acute distress - EENT Eyes: Present: PERRL, EOM intact ENT: hearing intact, clear oral mucosa, dentition normal - Neck Neck: Present: supple, normal ROM - Respiratory Respiratory effort: normal Respiratory: bilateral: CTA - Cardiovascular Rhythm: regular Heart Sounds: Present: S1 & S2. Absent: gallop, rub - Extremities Extremities: no ischemia, No edema, Full ROM - Abdominal General gastrointestinal: soft, non-tender, non-distended, normal bowel sounds - Integumentary Integumentary: Present: clear, warm, dry - Neurologic Neurologic: CNII-XII intact, moves all extremities Results - Labs CBC & Chem 7: 10/02/18 06:05 09/27/18 04:22 Labs: Laboratory Last Values WBC 6.4 K/mm3 (4.5-11.0) 09/26/18 14:35 RBC 2.74 M/mm3 (3.65-5.03) L 09/26/18 14:35 Hgb 9.4 gm/dl (11.8-15.2) L 09/26/18 17:28 Hct 26.9 % (35.5-45.6) L 09/26/18 17:28 MCV 94 fl (84-94) 09/26/18 14:35 MCH 34 pg (28-32) H 09/26/18 14:35 MCHC 36 % (32-34) H 09/26/18 14:35 RDW 14.3 % (13.2-15.2) 09/26/18 14:35 Plt Count 309 K/mm3 (140-440) 10/02/18 06:05 Lymph % (Auto) 21.3 % (13.4-35.0) 09/26/18 14:35 [place] % (Auto) 9.0 % (0.0-7.3) H 09/26/18 14:35 Eos % (Auto) 2.6 % (0.0-4.3) 09/26/18 14:35 Baso % (Auto) 0.8 % (0.0-1.8) 09/26/18 14:35 Lymph # 1.4 K/mm3 (1.2-5.4) 09/26/18 14:35 [place] # 0.6 K/mm3 (0.0-0.8) 09/26/18 14:35 Eos # 0.2 K/mm3 (0.0-0.4) 09/26/18 14:35 Baso # 0.1 K/mm3 (0.0-0.1) 09/26/18 14:35 Seg Neutrophils % 66.3 % (40.0-70.0) 09/26/18 14:35 Seg Neutrophils # 4.2 K/mm3 (1.8-7.7) 09/26/18 14:35 PT 13.7 Sec. (12.2-14.9) 09/26/18 17:28 INR 0.99 (0.87-1.13) 09/26/18 17:28 APTT 29.5 Sec. (24.2-36.6) 09/26/18 17:28 Sodium 140 mmol/L (137-145) 09/27/18 04:22 Potassium 4.5 mmol/L (3.6-5.0) 09/27/18 04:22 Chloride 105.7 mmol/L (98-107) 09/27/18 04:22 Carbon Dioxide 24 mmol/L (22-30) 09/27/18 04:22 Anion Gap 15 mmol/L 09/27/18 04:22 BUN 20 mg/dL (9-20) 09/27/18 04:22 Creatinine 1.0 mg/dL (0.8-1.5) 09/27/18 04:22 Estimated GFR > 60 ml/min 09/27/18 04:22 BUN/Creatinine Ratio 20 % 09/27/18 04:22 Glucose 83 mg/dL (75-100) 09/27/18 04:22 Hemoglobin A1c 5.3 % (4-6) 09/26/18 17:28 Lactic Acid 1.50 mmol/L (0.7-2.0) 09/26/18 14:35 Calcium 8.8 mg/dL (8.4-10.2) 09/27/18 04:22 Total Bilirubin 0.20 mg/dL (0.1-1.2) 09/27/18 04:22 AST 22 units/L (5-40) 09/27/18 04:22 ALT 30 units/L (7-56) 09/27/18 04:22 Alkaline Phosphatase 63 units/L (35-129) 09/27/18 04:22 Total Creatine Kinase 70 units/L (55-170) 09/26/18 14:35 CK-MB (CK-2) 3.2 ng/mL (0.0-4.0) 09/26/18 14:35 CK-MB (CK-2) Rel Index 4.5 (0-4) H 09/26/18 14:35 Troponin T 0.012 ng/mL (0.00-0.029) 09/30/18 15:43 Total Protein 5.4 g/dL (6.3-8.2) L 09/27/18 04:22 Albumin 3.2 g/dL (3.9-5) L 09/27/18 04:22 Albumin/Globulin Ratio 1.5 % 09/27/18 04:22 Triglycerides 112 mg/dL (2-149) 09/26/18 14:35 Cholesterol 148 mg/dL (50-199) 09/26/18 14:35 LDL Cholesterol Direct 107 mg/dL (50-130) 09/26/18 14:35 HDL Cholesterol 35 mg/dL (40-59) L 09/26/18 14:35 Cholesterol/HDL Ratio 4.22 % 09/26/18 14:35 Urine Color Yellow (Yellow) 09/26/18 14:07 Urine Turbidity Clear (Clear) 09/26/18 14:07 Urine pH 6.0 (5.0-7.0) 09/26/18 14:07 Ur Specific [place] 1.016 (1.003-1.030) 09/26/18 14:07 Urine Protein <15 mg/dl mg/dL (Negative) 09/26/18 14:07 Urine Glucose (UA) Neg mg/dL (Negative) 09/26/18 14:07 Urine Ketones Tr mg/dL (Negative) 09/26/18 14:07 Urine Blood Neg (Negative) 09/26/18 14:07 Urine Nitrite Neg (Negative) 09/26/18 14:07 Urine Bilirubin Neg (Negative) 09/26/18 14:07 Urine Urobilinogen < 2.0 mg/dL (<2.0) 09/26/18 14:07 Ur Leukocyte Esterase Neg (Negative) 09/26/18 14:07 Urine WBC (Auto) 1.0 /HPF (0.0-6.0) 09/26/18 14:07 Urine RBC (Auto) 2.0 /HPF (0.0-6.0) 09/26/18 14:07 Urine Bacteria (Auto) 1+ /HPF (Negative) 09/26/18 14:07 Urine Mucus Few /HPF 09/26/18 14:07 Salicylates < 0.3 mg/dL (2.8-20.0) L 09/26/18 14:35 Urine Opiates Screen Presumptive negative 09/26/18 14:07 Urine Methadone Screen Presumptive negative 09/26/18 14:07 Acetaminophen < 5.0 ug/mL (10.0-30.0) L 09/26/18 14:35 Ur Barbiturates Screen Presumptive negative 09/26/18 14:07 Ur Phencyclidine Scrn Presumptive negative 09/26/18 14:07 Ur Amphetamines Screen Presumptive negative 09/26/18 14:07 U Benzodiazepines Scrn Presumptive negative 09/26/18 14:07 Urine Cocaine Screen Presumptive negative 09/26/18 14:07 U Marijuana (THC) Screen Presumptive negative 09/26/18 14:07 Drugs of Abuse Note Disclamer 09/26/18 14:07 Active Medications - Current Medications Current Medications: Generic Name Dose Route Start Last Admin Trade Name Freq PRN Reason Stop Dose Admin Acetaminophen 650 mg 09/26/18 17:01 Tylenol PO Q4H PRN Pain MILD(1-3)/Fever >100.5/PAULINO Aspirin 81 mg 10/01/18 10:00 10/01/18 13:19 Baby Aspirin PO 81 mg QDAY JORDYN Administration Atorvastatin Calcium 40 mg 09/30/18 22:00 10/01/18 22:44 Lipitor PO 40 mg QHS JORDYN Administration Carvedilol 12.5 mg 09/30/18 22:00 10/01/18 22:45 Coreg PO 12.5 mg BID JORDYN Administration Divalproex Sodium 250 mg 09/26/18 22:00 10/01/18 22:44 Depakote Er PO 250 mg QHS JORDYN Administration Enoxaparin Sodium 40 mg 10/01/18 10:00 10/01/18 13:18 Lovenox SUB-Q 40 mg QDAY@1000 JORDYN Administration Mirtazapine 15 mg 09/26/18 22:00 10/01/18 22:44 Remeron PO 15 mg QHS JORDYN Administration Ondansetron HCl 4 mg 09/26/18 17:01 Zofran IV Q8H PRN Nausea And Vomiting Oxycodone/Acetaminophen 1 tab 09/26/18 17:04 Percocet 5/325 PO Q6H PRN Pain, Moderate (4-6) Risperidone 0.5 mg 09/26/18 22:00 10/01/18 22:44 Risperdal PO 0.5 mg QHS JORDYN Administration Sodium Chloride 10 ml 09/26/18 22:00 10/01/18 22:45 Sodium Chloride Flush Syringe 10 Ml IV 10 ml BID JORDYN Administration Sodium Chloride 10 ml 09/26/18 17:01 Sodium Chloride Flush Syringe 10 Ml IV PRN PRN LINE FLUSH Valsartan 40 mg 10/01/18 15:22 Diovan PO QDAY JORDYN Nutrition/Malnutrition Assess - Dietary Evaluation Nutrition/Malnutrition Findings: Nutrition Notes Start: 09/27/18 11:01 Freq: Status: Active Protocol: Document 09/28/18 10:51 TW (Rec: 09/28/18 10:59 TW [email or web address]) Co-Sign 09/28/18 10:51 LP Nutrition Notes Initial or Follow up Assessment Current Diagnosis Sepsis Other Pertinent Diagnosis Dementia, DVT Current Diet Cardiac Labs/Tests Reviewed. Pertinent Medications Lovenox Height 5 ft 8 in Weight 77.4 kg [place] Body Weight (kg) 70.00 BMI 25.9 Intake Prior to Admission Good Weight Status Appropriate Subjective/Other Information Pt stated he is eating about 50% of his meals and had a good appetite [employer]. Pt denied N /V/D and chewing/swallowing difficulties. Pt stated he is unsure if he has lost any wt recently. No signs of wasting. Percent of energy/protein needs met: 57%/54% #1 Nutrition Diagnosis Inadequate oral intake Etiology Dementia As Evidenced by Signs and Symptoms Eating less than 50% of meals and meeting less than 75% of kcal and protein needs Is patient on ventilator? No Is Patient Ambulatory and/or Out of Bed Yes REE-([facility]-ambulatory/OOB) [ 1850.550 NUTR.[id number]] Calculation Used for Recommendations [facility] Additional Notes Protein needs: (1.0-1.2 g/kg) (77-92 g/day) Fluid needs: 1ml/ kcal Nutrition Intervention Change Diet Order: continue current Add Supplement/Snack (indicate name/kcal Ensure Enlive daily /protein ) Provides kCal: 350 Provides Protein (gm) 20 Goal #1 Meet at least 75% of kcal and protein needs by PO and ONS intake Goal #2 ONS tolerance Anticipated Discharge Needs: Cardiac Diet Follow-Up By: 10/03/18 Additional Comments F/U for PO and ONS intake
[2018-10-02] MEDS: COREG PO SCH ×2 (09:36→23:10)
[2018-10-02] MEDS: LOVENOX SUB-Q SCH (09:36)
[2018-10-02] MEDS: DIOVAN PO SCH (09:36)
[2018-10-02] MEDS: BABY ASPIRIN PO SCH (09:36)
[2018-10-02] MEDS: SODIUM CHLORIDE FLUSH SYRINGE 10 ML IV SCH ×2 (09:37→23:12)
[2018-10-02] MEDS: RisperDAL PO SCH (23:10)
[2018-10-02] MEDS: REMERON PO SCH (23:11)
--- NOTE | 2018-10-03 09:18 | Progress Note ---
Assessment and Plan Assessment and plan: Elevated troponin -Probably secondary to demand ischemia -On medical management -Normal LVEF by echocardiogram 08/2018. -No further w/u by cardiology Dementia with behavioral disturbances -Improved Acute psychosis -Resolved, off 1013 -Continue home medications: Risperdal 0.5 mg PO HS, Remeron 15 mg PO HS, and Depakote 250 mg PO HS. -Psych signed off Near syncope -probably secondary to right carotid artery stenosis -carotid doppler ultrasound showed 50-69% stenosis RT ICA -On aspirin and statin Hypertension -controlled Dyslipidemia -On statin Disposition: awaiting SNF placement History Interval history: No new issues overnight. Hospitalist Physical - Constitutional Vitals: Temp Pulse Resp BP Pulse Ox 97.7 F 89 18 141/82 98 10/03/18 07:44 10/03/18 07:44 10/03/18 07:44 10/03/18 07:44 10/03/18 07:44 General appearance: Present: no acute distress - EENT Eyes: Present: PERRL, EOM intact ENT: hearing intact, clear oral mucosa, dentition normal - Neck Neck: Present: supple, normal ROM - Respiratory Respiratory effort: normal Respiratory: bilateral: CTA - Cardiovascular Rhythm: regular Heart Sounds: Present: S1 & S2. Absent: gallop, rub - Extremities Extremities: no ischemia, No edema, Full ROM - Abdominal General gastrointestinal: soft, non-tender, non-distended, normal bowel sounds - Integumentary Integumentary: Present: clear, warm, dry - Neurologic Neurologic: CNII-XII intact, moves all extremities Results - Labs CBC & Chem 7: 10/02/18 06:05 09/27/18 04:22 Labs: Laboratory Last Values WBC 6.4 K/mm3 (4.5-11.0) 09/26/18 14:35 RBC 2.74 M/mm3 (3.65-5.03) L 09/26/18 14:35 Hgb 9.4 gm/dl (11.8-15.2) L 09/26/18 17:28 Hct 26.9 % (35.5-45.6) L 09/26/18 17:28 MCV 94 fl (84-94) 09/26/18 14:35 MCH 34 pg (28-32) H 09/26/18 14:35 MCHC 36 % (32-34) H 09/26/18 14:35 RDW 14.3 % (13.2-15.2) 09/26/18 14:35 Plt Count 309 K/mm3 (140-440) 10/02/18 06:05 Lymph % (Auto) 21.3 % (13.4-35.0) 09/26/18 14:35 [place] % (Auto) 9.0 % (0.0-7.3) H 09/26/18 14:35 Eos % (Auto) 2.6 % (0.0-4.3) 09/26/18 14:35 Baso % (Auto) 0.8 % (0.0-1.8) 09/26/18 14:35 Lymph # 1.4 K/mm3 (1.2-5.4) 09/26/18 14:35 [place] # 0.6 K/mm3 (0.0-0.8) 09/26/18 14:35 Eos # 0.2 K/mm3 (0.0-0.4) 09/26/18 14:35 Baso # 0.1 K/mm3 (0.0-0.1) 09/26/18 14:35 Seg Neutrophils % 66.3 % (40.0-70.0) 09/26/18 14:35 Seg Neutrophils # 4.2 K/mm3 (1.8-7.7) 09/26/18 14:35 PT 13.7 Sec. (12.2-14.9) 09/26/18 17:28 INR 0.99 (0.87-1.13) 09/26/18 17:28 APTT 29.5 Sec. (24.2-36.6) 09/26/18 17:28 Sodium 140 mmol/L (137-145) 09/27/18 04:22 Potassium 4.5 mmol/L (3.6-5.0) 09/27/18 04:22 Chloride 105.7 mmol/L (98-107) 09/27/18 04:22 Carbon Dioxide 24 mmol/L (22-30) 09/27/18 04:22 Anion Gap 15 mmol/L 09/27/18 04:22 BUN 20 mg/dL (9-20) 09/27/18 04:22 Creatinine 1.0 mg/dL (0.8-1.5) 09/27/18 04:22 Estimated GFR > 60 ml/min 09/27/18 04:22 BUN/Creatinine Ratio 20 % 09/27/18 04:22 Glucose 83 mg/dL (75-100) 09/27/18 04:22 POC Glucose 140 (70-105) H 10/02/18 12:05 Hemoglobin A1c 5.3 % (4-6) 09/26/18 17:28 Lactic Acid 1.50 mmol/L (0.7-2.0) 09/26/18 14:35 Calcium 8.8 mg/dL (8.4-10.2) 09/27/18 04:22 Total Bilirubin 0.20 mg/dL (0.1-1.2) 09/27/18 04:22 AST 22 units/L (5-40) 09/27/18 04:22 ALT 30 units/L (7-56) 09/27/18 04:22 Alkaline Phosphatase 63 units/L (35-129) 09/27/18 04:22 Total Creatine Kinase 70 units/L (55-170) 09/26/18 14:35 CK-MB (CK-2) 3.2 ng/mL (0.0-4.0) 09/26/18 14:35 CK-MB (CK-2) Rel Index 4.5 (0-4) H 09/26/18 14:35 Troponin T 0.012 ng/mL (0.00-0.029) 09/30/18 15:43 Total Protein 5.4 g/dL (6.3-8.2) L 09/27/18 04:22 Albumin 3.2 g/dL (3.9-5) L 09/27/18 04:22 Albumin/Globulin Ratio 1.5 % 09/27/18 04:22 Triglycerides 112 mg/dL (2-149) 09/26/18 14:35 Cholesterol 148 mg/dL (50-199) 09/26/18 14:35 LDL Cholesterol Direct 107 mg/dL (50-130) 09/26/18 14:35 HDL Cholesterol 35 mg/dL (40-59) L 09/26/18 14:35 Cholesterol/HDL Ratio 4.22 % 09/26/18 14:35 Urine Color Yellow (Yellow) 09/26/18 14:07 Urine Turbidity Clear (Clear) 09/26/18 14:07 Urine pH 6.0 (5.0-7.0) 09/26/18 14:07 Ur Specific [place] 1.016 (1.003-1.030) 09/26/18 14:07 Urine Protein <15 mg/dl mg/dL (Negative) 09/26/18 14:07 Urine Glucose (UA) Neg mg/dL (Negative) 09/26/18 14:07 Urine Ketones Tr mg/dL (Negative) 09/26/18 14:07 Urine Blood Neg (Negative) 09/26/18 14:07 Urine Nitrite Neg (Negative) 09/26/18 14:07 Urine Bilirubin Neg (Negative) 09/26/18 14:07 Urine Urobilinogen < 2.0 mg/dL (<2.0) 09/26/18 14:07 Ur Leukocyte Esterase Neg (Negative) 09/26/18 14:07 Urine WBC (Auto) 1.0 /HPF (0.0-6.0) 09/26/18 14:07 Urine RBC (Auto) 2.0 /HPF (0.0-6.0) 09/26/18 14:07 Urine Bacteria (Auto) 1+ /HPF (Negative) 09/26/18 14:07 Urine Mucus Few /HPF 09/26/18 14:07 Salicylates < 0.3 mg/dL (2.8-20.0) L 09/26/18 14:35 Urine Opiates Screen Presumptive negative 09/26/18 14:07 Urine Methadone Screen Presumptive negative 09/26/18 14:07 Acetaminophen < 5.0 ug/mL (10.0-30.0) L 09/26/18 14:35 Ur Barbiturates Screen Presumptive negative 09/26/18 14:07 Ur Phencyclidine Scrn Presumptive negative 09/26/18 14:07 Ur Amphetamines Screen Presumptive negative 09/26/18 14:07 U Benzodiazepines Scrn Presumptive negative 09/26/18 14:07 Urine Cocaine Screen Presumptive negative 09/26/18 14:07 U Marijuana (THC) Screen Presumptive negative 09/26/18 14:07 Drugs of Abuse Note Disclamer 09/26/18 14:07 Active Medications - Current Medications Current Medications: Generic Name Dose Route Start Last Admin Trade Name Freq PRN Reason Stop Dose Admin Acetaminophen 650 mg 09/26/18 17:01 Tylenol PO Q4H PRN Pain MILD(1-3)/Fever >100.5/PAULINO Aspirin 81 mg 10/01/18 10:00 10/02/18 09:36 Baby Aspirin PO 81 mg QDAY JORDYN Administration Atorvastatin Calcium 40 mg 09/30/18 22:00 10/02/18 23:11 Lipitor PO 40 mg QHS JORDYN Administration Carvedilol 12.5 mg 09/30/18 22:00 10/02/18 23:10 Coreg PO 12.5 mg BID COUNTS INCLUDE 234 BEDS AT THE [facility] Administration Divalproex Sodium 250 mg 09/26/18 22:00 10/02/18 23:10 Depakote Er PO 250 mg QHS JORDYN Administration Enoxaparin Sodium 40 mg 10/01/18 10:00 10/02/18 09:36 Lovenox SUB-Q 40 mg QDAY@1000 JORDYN Administration Mirtazapine 15 mg 09/26/18 22:00 10/02/18 23:11 Remeron PO 15 mg QHS JORDYN Administration Ondansetron HCl 4 mg 09/26/18 17:01 Zofran IV Q8H PRN Nausea And Vomiting Oxycodone/Acetaminophen 1 tab 09/26/18 17:04 Percocet 5/325 PO Q6H PRN Pain, Moderate (4-6) Risperidone 0.5 mg 09/26/18 22:00 10/02/18 23:10 Risperdal PO 0.5 mg QHS COUNTS INCLUDE 234 BEDS AT THE [facility] Administration Sodium Chloride 10 ml 09/26/18 22:00 10/02/18 23:12 Sodium Chloride Flush Syringe 10 Ml IV Not Given BID COUNTS INCLUDE 234 BEDS AT THE [facility] Sodium Chloride 10 ml 09/26/18 17:01 Sodium Chloride Flush Syringe 10 Ml IV PRN PRN LINE FLUSH Valsartan 40 mg 10/01/18 15:22 10/02/18 09:36 Diovan PO 40 mg QDAY JORDYN Administration Nutrition/Malnutrition Assess - Dietary Evaluation Nutrition/Malnutrition Findings: Nutrition Notes Start: 09/27/18 11:01 Freq: Status: Active Protocol: Document 09/28/18 10:51 TW (Rec: 09/28/18 10:59 TW [email or web address]) Co-Sign 09/28/18 10:51 LP Nutrition Notes Initial or Follow up Assessment Current Diagnosis Sepsis Other Pertinent Diagnosis Dementia, DVT Current Diet Cardiac Labs/Tests Reviewed. 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 Pt denied N /V/D and chewing/swallowing difficulties. Pt stated he is unsure if he has lost any wt recently. No signs of wasting. Percent of energy/protein needs met: 57%/54% #1 Nutrition Diagnosis Inadequate oral intake Etiology Dementia As Evidenced by Signs and Symptoms Eating less than 50% of meals and meeting less than 75% of kcal and protein needs Is patient on ventilator? No Is Patient Ambulatory and/or Out of Bed Yes REE-([facility]-ambulatory/OOB) [ 1850.550 NUTR.MSJOOB] Calculation Used for Recommendations [facility] Additional Notes Protein needs: (1.0-1.2 g/kg) (77-92 g/day) Fluid needs: 1ml/ kcal Nutrition Intervention Change Diet Order: continue current Add Supplement/Snack (indicate name/kcal Ensure Enlive daily /protein ) Provides kCal: 350 Provides Protein (gm) 20 Goal #1 Meet at least 75% of kcal and protein needs by PO and ONS intake Goal #2 ONS tolerance Anticipated Discharge Needs: Cardiac Diet Follow-Up By: 10/03/18 Additional Comments F/U for PO and ONS intake
[2018-10-03] MEDS: BABY ASPIRIN PO SCH (10:02)
[2018-10-03] MEDS: COREG PO SCH ×2 (10:03→21:37)
[2018-10-03] MEDS: SODIUM CHLORIDE FLUSH SYRINGE 10 ML IV SCH ×2 (10:03→21:38)
[2018-10-03] MEDS: LOVENOX SUB-Q SCH (10:03)
[2018-10-03] MEDS: DIOVAN PO SCH (10:03)
[2018-10-03] MEDS: RisperDAL PO SCH (21:36)
[2018-10-03] MEDS: REMERON PO SCH (21:36)
[2018-10-04] MEDS: DIOVAN PO SCH (09:11)
[2018-10-04] MEDS: BABY ASPIRIN PO SCH (09:11)
[2018-10-04] MEDS: COREG PO SCH ×2 (09:11→22:33)
[2018-10-04] MEDS: SODIUM CHLORIDE FLUSH SYRINGE 10 ML IV SCH (09:12)
[2018-10-04] MEDS: LOVENOX SUB-Q SCH (09:12)
--- NOTE | 2018-10-04 11:48 | Progress Note ---
Assessment and Plan Assessment and plan: Elevated troponin -Probably secondary to demand ischemia -On medical management -Normal LVEF by echocardiogram 08/2018. -No further w/u by cardiology Dementia with behavioral disturbances -Improved Acute psychosis -Resolved, off 1013 -Continue home medications: Risperdal 0.5 mg PO HS, Remeron 15 mg PO HS, and Depakote 250 mg PO HS. -Psych signed off Near syncope -probably secondary to right carotid artery stenosis -carotid doppler ultrasound showed 50-69% stenosis RT ICA -On aspirin and statin Hypertension -controlled Dyslipidemia -On statin Disposition: awaiting SNF placement History Interval history: No new issues overnight. Hospitalist Physical - Constitutional Vitals: Temp Pulse Resp BP Pulse Ox 99.2 F 80 18 128/68 95 10/04/18 08:02 10/04/18 09:44 10/04/18 08:02 10/04/18 09:11 10/04/18 08:49 General appearance: Present: no acute distress - EENT Eyes: Present: PERRL, EOM intact ENT: hearing intact, clear oral mucosa, dentition normal - Neck Neck: Present: supple, normal ROM - Respiratory Respiratory effort: normal Respiratory: bilateral: CTA - Cardiovascular Rhythm: regular Heart Sounds: Present: S1 & S2. Absent: gallop, rub - Extremities Extremities: no ischemia, No edema, Full ROM - Abdominal General gastrointestinal: soft, non-tender, non-distended, normal bowel sounds - Integumentary Integumentary: Present: clear, warm, dry - Neurologic Neurologic: CNII-XII intact, moves all extremities Results - Labs CBC & Chem 7: 10/04/18 04:47 09/27/18 04:22 Labs: Laboratory Last Values WBC 6.4 K/mm3 (4.5-11.0) 09/26/18 14:35 RBC 2.74 M/mm3 (3.65-5.03) L 09/26/18 14:35 Hgb 9.4 gm/dl (11.8-15.2) L 09/26/18 17:28 Hct 26.9 % (35.5-45.6) L 09/26/18 17:28 MCV 94 fl (84-94) 09/26/18 14:35 MCH 34 pg (28-32) H 09/26/18 14:35 MCHC 36 % (32-34) H 09/26/18 14:35 RDW 14.3 % (13.2-15.2) 09/26/18 14:35 Plt Count 302 K/mm3 (140-440) 10/04/18 04:47 Lymph % (Auto) 21.3 % (13.4-35.0) 09/26/18 14:35 [place] % (Auto) 9.0 % (0.0-7.3) H 09/26/18 14:35 Eos % (Auto) 2.6 % (0.0-4.3) 09/26/18 14:35 Baso % (Auto) 0.8 % (0.0-1.8) 09/26/18 14:35 Lymph # 1.4 K/mm3 (1.2-5.4) 09/26/18 14:35 [place] # 0.6 K/mm3 (0.0-0.8) 09/26/18 14:35 Eos # 0.2 K/mm3 (0.0-0.4) 09/26/18 14:35 Baso # 0.1 K/mm3 (0.0-0.1) 09/26/18 14:35 Seg Neutrophils % 66.3 % (40.0-70.0) 09/26/18 14:35 Seg Neutrophils # 4.2 K/mm3 (1.8-7.7) 09/26/18 14:35 PT 13.7 Sec. (12.2-14.9) 09/26/18 17:28 INR 0.99 (0.87-1.13) 09/26/18 17:28 APTT 29.5 Sec. (24.2-36.6) 09/26/18 17:28 Sodium 140 mmol/L (137-145) 09/27/18 04:22 Potassium 4.5 mmol/L (3.6-5.0) 09/27/18 04:22 Chloride 105.7 mmol/L (98-107) 09/27/18 04:22 Carbon Dioxide 24 mmol/L (22-30) 09/27/18 04:22 Anion Gap 15 mmol/L 09/27/18 04:22 BUN 20 mg/dL (9-20) 09/27/18 04:22 Creatinine 1.0 mg/dL (0.8-1.5) 09/27/18 04:22 Estimated GFR > 60 ml/min 09/27/18 04:22 BUN/Creatinine Ratio 20 % 09/27/18 04:22 Glucose 83 mg/dL (75-100) 09/27/18 04:22 POC Glucose 140 (70-105) H 10/02/18 12:05 Hemoglobin A1c 5.3 % (4-6) 09/26/18 17:28 Lactic Acid 1.50 mmol/L (0.7-2.0) 09/26/18 14:35 Calcium 8.8 mg/dL (8.4-10.2) 09/27/18 04:22 Total Bilirubin 0.20 mg/dL (0.1-1.2) 09/27/18 04:22 AST 22 units/L (5-40) 09/27/18 04:22 ALT 30 units/L (7-56) 09/27/18 04:22 Alkaline Phosphatase 63 units/L (35-129) 09/27/18 04:22 Total Creatine Kinase 70 units/L (55-170) 09/26/18 14:35 CK-MB (CK-2) 3.2 ng/mL (0.0-4.0) 09/26/18 14:35 CK-MB (CK-2) Rel Index 4.5 (0-4) H 09/26/18 14:35 Troponin T 0.012 ng/mL (0.00-0.029) 09/30/18 15:43 Total Protein 5.4 g/dL (6.3-8.2) L 09/27/18 04:22 Albumin 3.2 g/dL (3.9-5) L 09/27/18 04:22 Albumin/Globulin Ratio 1.5 % 09/27/18 04:22 Triglycerides 112 mg/dL (2-149) 09/26/18 14:35 Cholesterol 148 mg/dL (50-199) 09/26/18 14:35 LDL Cholesterol Direct 107 mg/dL (50-130) 09/26/18 14:35 HDL Cholesterol 35 mg/dL (40-59) L 09/26/18 14:35 Cholesterol/HDL Ratio 4.22 % 09/26/18 14:35 Urine Color Yellow (Yellow) 09/26/18 14:07 Urine Turbidity Clear (Clear) 09/26/18 14:07 Urine pH 6.0 (5.0-7.0) 09/26/18 14:07 Ur Specific [place] 1.016 (1.003-1.030) 09/26/18 14:07 Urine Protein <15 mg/dl mg/dL (Negative) 09/26/18 14:07 Urine Glucose (UA) Neg mg/dL (Negative) 09/26/18 14:07 Urine Ketones Tr mg/dL (Negative) 09/26/18 14:07 Urine Blood Neg (Negative) 09/26/18 14:07 Urine Nitrite Neg (Negative) 09/26/18 14:07 Urine Bilirubin Neg (Negative) 09/26/18 14:07 Urine Urobilinogen < 2.0 mg/dL (<2.0) 09/26/18 14:07 Ur Leukocyte Esterase Neg (Negative) 09/26/18 14:07 Urine WBC (Auto) 1.0 /HPF (0.0-6.0) 09/26/18 14:07 Urine RBC (Auto) 2.0 /HPF (0.0-6.0) 09/26/18 14:07 Urine Bacteria (Auto) 1+ /HPF (Negative) 09/26/18 14:07 Urine Mucus Few /HPF 09/26/18 14:07 Salicylates < 0.3 mg/dL (2.8-20.0) L 09/26/18 14:35 Urine Opiates Screen Presumptive negative 09/26/18 14:07 Urine Methadone Screen Presumptive negative 09/26/18 14:07 Acetaminophen < 5.0 ug/mL (10.0-30.0) L 09/26/18 14:35 Ur Barbiturates Screen Presumptive negative 09/26/18 14:07 Ur Phencyclidine Scrn Presumptive negative 09/26/18 14:07 Ur Amphetamines Screen Presumptive negative 09/26/18 14:07 U Benzodiazepines Scrn Presumptive negative 09/26/18 14:07 Urine Cocaine Screen Presumptive negative 09/26/18 14:07 U Marijuana (THC) Screen Presumptive negative 09/26/18 14:07 Drugs of Abuse Note Disclamer 09/26/18 14:07 Active Medications - Current Medications Current Medications: Generic Name Dose Route Start Last Admin Trade Name Freq PRN Reason Stop Dose Admin Acetaminophen 650 mg 09/26/18 17:01 Tylenol PO Q4H PRN Pain MILD(1-3)/Fever >100.5/PAULINO Aspirin 81 mg 10/01/18 10:00 10/04/18 09:11 Baby Aspirin PO 81 mg QDAY JORDYN Administration Atorvastatin Calcium 40 mg 09/30/18 22:00 10/03/18 21:36 Lipitor PO 40 mg QHS JORDYN Administration Carvedilol 12.5 mg 09/30/18 22:00 10/04/18 09:11 Coreg PO 12.5 mg BID JORDYN Administration Divalproex Sodium 250 mg 09/26/18 22:00 10/03/18 21:36 Depakote Er PO 250 mg QHS JORDYN Administration Enoxaparin Sodium 40 mg 10/01/18 10:00 10/04/18 09:12 Lovenox SUB-Q 40 mg QDAY@1000 JORDYN Administration Mirtazapine 15 mg 09/26/18 22:00 10/03/18 21:36 Remeron PO 15 mg QHS JORDYN Administration Ondansetron HCl 4 mg 09/26/18 17:01 Zofran IV Q8H PRN Nausea And Vomiting Oxycodone/Acetaminophen 1 tab 09/26/18 17:04 Percocet 5/325 PO Q6H PRN Pain, Moderate (4-6) Risperidone 0.5 mg 09/26/18 22:00 10/03/18 21:36 Risperdal PO 0.5 mg QHS JORDYN Administration Sodium Chloride 10 ml 09/26/18 22:00 10/04/18 09:12 Sodium Chloride Flush Syringe 10 Ml IV Not Given BID JORDYN Sodium Chloride 10 ml 09/26/18 17:01 Sodium Chloride Flush Syringe 10 Ml IV PRN PRN LINE FLUSH Valsartan 40 mg 10/01/18 15:22 10/04/18 09:11 Diovan PO 40 mg QDAY JORDYN Administration Nutrition/Malnutrition Assess - Dietary Evaluation Nutrition/Malnutrition Findings: Nutrition Notes Start: 09/27/18 11:01 Freq: Status: Active Protocol: Document 10/03/18 15:04 RD (Rec: 10/03/18 15:26 RD [email or web address]) Co-Sign 10/03/18 15:04 LP Nutrition Notes Initial or Follow up Reassessment Current Diagnosis Sepsis Other Pertinent Diagnosis Dementia, DVT Current Diet Cardiac Labs/Tests Reviewed Pertinent Medications Vickinox Height 5 ft 8 in Weight 73.3 kg [place] Body Weight (kg) 70.00 BMI 24.5 Subjective/Other Information Pt stated he has a good appetite and is eating more than half of his meals. He did explain he has a hard time opening his food packages due to weakness and needs assistance. Did not receive supplement drinks and does not think he needs them. Percent of energy/protein needs met: 68%/64% Burn Absent Trauma Absent #1 Nutrition Diagnosis Inadequate oral intake As Evidenced by Signs and Symptoms Pt meeting 68% of calorie needs and 64% of protein needs . Diagnosis Progress(for reassessment Improved documentation) Is patient on ventilator? No Is Patient Ambulatory and/or Out of Bed Yes REE-([facility]-ambulatory/OOB) [ 1797.250 NUTR.MSJOOB] Calculation Used for Recommendations [facility] Additional Notes Protein needs: (1.0-1.2 g/kg) (77-92 g/day) Fluid needs: 1ml/ kcal Nutrition Intervention Change Diet Order: continue cardiac Add Supplement/Snack (indicate name/kcal D/C /protein ) Goal #1 Meet at least 75% of kcal and protein needs by PO intake Anticipated Discharge Needs: Cardiac Diet Follow-Up By: 10/09/18 Additional Comments f/u: PO intakes
--- NOTE | 2018-10-04 11:52 | Discharge Summary ---
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 Additional Physician Instructions: Hanny psych placement 09/26/18 18:36 Consult to Physician [CONS] Routine Comment: ALREADY SEEN BY PSYCH PER NURSE Consulting Provider: SHAHEEN GARCES Physician Instructions: Reason For Exam: dementia with agitation and delusions Physical Therapy Evaluation and Treat [CONS] Routine Comment: Reason For Exam: debility 09/28/18 13:39 Consult to Mental Health [CONS] Routine Reason For Exam: delusion Place consult to:: mental health Notified:: Della Phone number called:: [phone] Was contact made?: Yes Comment:: reconsult, patient declined acceptance by [facility] Primary care physician: MERY GARCIA Hospitalization Reason for admission: elevated troponin Condition: Stable Hospital course: 88-year-old man with dementia, admitted with altered mental status, awaiting inpatient psychiatric assessment and treatment. The patient had no cardiac complaints of shortness of breath or chest pain or edema or palpitations. However, For unclear reasons, the patient had cardiac troponin levels measured thay were borderline elevated, which prompted admission to the hospital and a cardiac consultation. The patient has no cardiac history and no active cardiac issues, and was not interested in any cardiac work up. EKG done was a normal sinus rhythm, normal ECG. Chest x-ray showed no normal cardiac silhouette, clear lungs, no infiltrates or edema. Echocardiogram completed August 2018 revealed normal LVEF. Patient was noted to have dementia with behavioral disturbances and acute psychosis initially requiring 1013. Psychiatry saw the patient in consultation and restart home medications of severe, Remeron and Depakote. Patient stabilized and 1013 was rescinded. Case management/social work was counseled with regards to the discharge plan and discharge was arranged at [facility]. Dedicated discharge time 32 minutes. Disposition: [id number] PSY HOSP/PSY UNIT Time spent for discharge: 32 - Discharge Diagnoses (1) Altered mental state Status: Acute Qualifiers: Altered mental status type: unspecified Qualified Code(s): R41.82 - Altered mental status, unspecified (2) Confusion Status: Acute (3) Elevated troponin Status: Acute (4) Dementia Status: Chronic Qualifiers: Dementia type: vascular dementia Dementia behavioral disturbance: with behavioral disturbance Qualified Code(s): F01.51 - Vascular dementia with behavioral disturbance Core Measure Documentation - Palliative Care Palliative Care/ Comfort Measures: Not Applicable - Core Measures Any of the following diagnoses?: none Exam - Constitutional Vitals: Temp Pulse Resp BP Pulse Ox 99.2 F 80 18 128/68 95 10/04/18 08:02 10/04/18 09:44 10/04/18 08:02 10/04/18 09:11 10/04/18 08:49 General appearance: Present: no acute distress, well-nourished - EENT Eyes: Present: PERRL ENT: hearing intact, clear oral mucosa - Neck Neck: Present: supple, normal ROM - Respiratory Respiratory effort: normal Respiratory: bilateral: CTA - Cardiovascular Heart Sounds: Present: S1 & S2. Absent: rub, click - Extremities Extremities: pulses symmetrical, No edema Peripheral Pulses: within normal limits - Abdominal General gastrointestinal: Present: soft, non-tender, non-distended, normal bowel sounds Male genitourinary: Present: normal - Integumentary Integumentary: Present: clear, warm, dry - Musculoskeletal Musculoskeletal: gait normal, strength equal bilaterally - Psychiatric Psychiatric: appropriate mood/affect, intact judgment & insight - Neurologic Neurologic: CNII-XII intact, moves all extremities Plan Activity: advance as tolerated Weight Bearing Status: Weight Bear as Tolerated Diet: regular Follow up with: MERY GARCIA MD [Primary Care Provider] - 7 Days Prescriptions: Aspirin [Aspirin BABY CHEW TAB] 81 mg PO QDAY #30 tab.chew Carvedilol [Coreg] 12.5 mg PO BID #60 tablet Divalproex ER [Depakote ER] 250 mg PO QHS #30 tablet AtorvaSTATin [Lipitor] 40 mg PO QHS #30 tablet Melatonin 3 mg PO QHS #30 tab.rapdis Amlodipine Besylate [Norvasc] 2.5 mg PO DAILY #30 tablet Mirtazapine [Remeron] 15 mg PO QHS #30 tablet risperiDONE [Risperdal] 0.5 mg PO QHS #30 tablet Valsartan 40 mg PO QDAY #30 tablet
[2018-10-04] MEDS: REMERON PO SCH (22:34)
[2018-10-05] MEDS: SODIUM CHLORIDE FLUSH SYRINGE 10 ML IV SCH ×2 (08:25→09:10)
[2018-10-05] MEDS: RisperDAL PO SCH (08:25)
[2018-10-05] MEDS: BABY ASPIRIN PO SCH (09:07)
[2018-10-05] MEDS: DIOVAN PO SCH (09:07)
[2018-10-05] MEDS: LOVENOX SUB-Q SCH (09:09)
[2018-10-05] MEDS: COREG PO SCH (09:09)
[2018-10-05 09:10] VITALS: BP 136/66
== END 2018-10-05 11:15 | DRG 948 ==
LOC: ED 13:14 → 4A 17:01 → 2B-ACE 09-29 19:03
PROVIDERS: ADMIT Internal Medicine; ATTEND Hospitalist
DX: R41.82 Altered mental status, unspecified (principal); F01.51 Vascular dementia, unspecified severity, with behavioral disturbance; N39.0 Urinary tract infection, site not specified; F23 Brief psychotic disorder; I65.21 Occlusion and stenosis of right carotid artery; R55 Syncope and collapse; F32.9 Major depressive disorder, single episode, unspecified; D64.9 Anemia, unspecified; E11.22 Type 2 diabetes mellitus with diabetic chronic kidney disease; I12.9 Hypertensive chronic kidney disease with stage 1 through stage 4 chronic kidney disease, or unspecified chronic kidney disease; E78.5 Hyperlipidemia, unspecified; F41.9 Anxiety disorder, unspecified; K21.9 Gastro-esophageal reflux disease without esophagitis; N18.9 Chronic kidney disease, unspecified; W18.30XA Fall on same level, unspecified, initial encounter; Y93.89 Activity, other specified; Y92.89 Other specified places as the place of occurrence of the external cause; Y99.8 Other external cause status
CPT/HCPCS: 36415; 70450; 71045; 80053; 80061; 80307; 80320; 81001; 82140; 82550; 82553; 82962; 83036; 84484; 85014; 85018; 85025; 85049; 85610; 85730; 93005; 93010; 93880; G0378; A9270-GY; G0480; J1644; J1650